=== PATIENT | female | born 1965 | race Caucasian/White ===

== ENCOUNTER 2017-07-07 16:44 | Inpatient (IN) | payer OTHER ==
[~2017-07-07] VITALS: Ht 167.6 cm; Wt 48.1 kg
[~2017-07-07 16:44] MED LIST: ACID REDUCER PO; ALEVE220 M2 PO; THERAFLU COLD1 EAC3 PO; ZOFRAN ODT8 MG PO
[2017-07-08 15:00] VITALS: BP 135/82
[2017-07-08 19:14] LABS: HEMATOCRIT 21.2 % (36.0-46.0); HEMOGLOBIN 6.6 G/DL (11.9-15.5); MCH 27.7 PG (29.0-34.0); MCHC 31.1 G/DL (30.0-36.0); MCV 89.1 FL (83-99); NRBC (%) 2.7 /100 WBC (0-0); PLATELET COUNT 410 K/uL (156-360); RBC DIS.WIDTH-CV 17.8 % (11.8-14.6); RED BLOOD COUNT 2.38 M/uL (3.80-5.20); WHITE BLOOD COUNT 30.3 K/uL (4.1-10.2)
[2017-07-08 19:22] LABS: CHLORIDE 103 MEQ/L (99-109); CREATININE 2.4 MG/DL (0.6-1.3); GFR ESTIMATE (CALCULATED) 23 mL/min/; GLUCOSE 196 mg/dL (70-99); MAGNESIUM 1.7 mg/dl (1.3-2.7); PHOSPHORUS 2.7 mg/dL (2.5-4.9); SODIUM 137 MEQ/L (136-147); UREA NITROGEN (BUN) 17 mg/dL (9-23); VANCOMYCIN, TROUGH 17.4 MCG/ML (10-20)
[2017-07-08] MEDS ORDERED: TYLENOL REGULA325 MG PO (19:47)
[2017-07-08] MEDS ORDERED: PROVENTIL,2.5 MG/0.5 IH (19:48)
[2017-07-08] MEDS ORDERED: PULMICORT0.5 MG/21 IH (19:49)
[2017-07-08] MEDS ORDERED: FAMOTIDINE IV (19:54)
[2017-07-08] MEDS ORDERED: PERFOROMIS20 MCG/2 M IH (19:55)
[2017-07-08] MEDS ORDERED: MUCINEX600 MG PO (19:57)
[2017-07-08] MEDS ORDERED: MORPHINE SUL IM (20:01)
[2017-07-08] MEDS ORDERED: NITROSTAT0.4 MG SL (20:02)
[2017-07-08] MEDS ORDERED: ULTRAM50 MG PO (20:03)
[2017-07-08] MEDS ORDERED: TRAZODONE HCL50 MG PO (20:04)
[2017-07-08] MEDS ORDERED: VANCOMYCIN750 MG/151 IV (20:07)
[2017-07-08] MEDS ORDERED: VANCOMYCIN125 MG/2.5 PO (20:09)
[2017-07-08 20:45] VITALS: BP 122/62
[2017-07-08 22:13] VITALS: BP 115/61
[2017-07-08 22:32] VITALS: BP 117/58
[2017-07-08 23:33] VITALS: BP 122/61
[2017-07-09] VITALS (7 sets, daily range): BP systolic 115–151; BP diastolic 60–82
[2017-07-09 06:22] LABS: HEMATOCRIT 26.2 % (36.0-46.0); HEMOGLOBIN 8.1 G/DL (11.9-15.5); MCH 27.4 PG (29.0-34.0); MCHC 30.9 G/DL (30.0-36.0); MCV 88.5 FL (83-99); NRBC (%) 2.1 /100 WBC (0-0); PLATELET COUNT 413 K/uL (156-360); RBC DIS.WIDTH-CV 17.7 % (11.8-14.6); RBC DIS.WIDTH-SD 55.8 % (39-53); WHITE BLOOD COUNT 27.1 K/uL (4.1-10.2)
[2017-07-09 06:31] LABS: RED BLOOD COUNT 2.96 M/uL (3.80-5.20)
[2017-07-09 06:53] LABS: ALBUMIN 1.9 G/DL (3.2-4.8); ALKALINE PHOSPHATASE 205 IU/L (3-129); ALT (GPT) 12 IU/L (3-49); AST (GOT) 21 IU/L (2-34); CHLORIDE 104 MEQ/L (99-109); CREATININE 2.6 MG/DL (0.6-1.3); GFR ESTIMATE (CALCULATED) 21 mL/min/; MAGNESIUM 1.8 mg/dl (1.3-2.7); POTASSIUM 4.2 MEQ/L (3.7-5.4); SODIUM 140 MEQ/L (136-147); TOTAL BILIRUBIN 0.3 MG/DL (0.0-1.0); TOTAL PROTEIN 5.7 G/DL (6.4-8.3); UREA NITROGEN (BUN) 18 mg/dL (9-23)
[2017-07-09 06:56] LABS: GLUCOSE 70 mg/dL (70-99)
[2017-07-10 00:28] VITALS: BP 155/74
[2017-07-10 04:36] VITALS: BP 155/82
[2017-07-10 04:36] LABS: HEMATOCRIT 26.6 % (36.0-46.0); HEMOGLOBIN 8.5 G/DL (11.9-15.5); MCH 28.2 PG (29.0-34.0); MCV 88.4 FL (83-99); NRBC (%) 1.3 /100 WBC (0-0); PLATELET COUNT 429 K/uL (156-360); RBC DIS.WIDTH-CV 17.9 % (11.8-14.6); RBC DIS.WIDTH-SD 56.6 % (39-53); RED BLOOD COUNT 3.01 M/uL (3.80-5.20); WHITE BLOOD COUNT 25.5 K/uL (4.1-10.2)
[2017-07-10 05:21] LABS: CHLORIDE 105 mEq/L (99-109); POTASSIUM 4.4 mEq/L (3.7-5.4); SODIUM 139 mEq/L (136-147)
[2017-07-10 05:22] LABS: GLUCOSE 81 mg/dL (70-99)
[2017-07-10 05:26] LABS: GFR ESTIMATE (CALCULATED) 15 mL/min/
[2017-07-10 05:27] LABS: UREA NITROGEN (BUN) 23 mg/dL (9-23)
[2017-07-10 05:34] LABS: CREATININE 3.5 mg/dL (0.6-1.3)
[2017-07-10 06:04] LABS: VANCOMYCIN, TROUGH 20.3 MCG/ML (10-20)
[2017-07-10 06:21] LABS: ABS NEUTROPHIL COUNT 20.1; ANISOCYTOSIS 2+; ATYPICAL LYMPHOCYTE 0.4 %; BAND NEUTROPHILS 1.7 % (0-8.0); EOSINOPHIL ABS CT 0.6; EOSINOPHILS 2.2 % (0-5.0); HOWELL JOLLY BODIES 2+; HYPOCHROMASIA 2+; MACROCYTES 2+; METAMYELOCYTES 1.3 %; MONOCYTES 4.3 % (0-9.0); MYELOCYTES 6.1 %; NUCLEATED RBC'S 1.7; OVALOCYTES 1+; PLAT.SUFFICIENCY ADEQUATE; POIKILOCYTOSIS 1+; TARGET CELLS 2+
[2017-07-10 07:38] VITALS: BP 134/68
[2017-07-10 13:05] VITALS: BP 139/68
[2017-07-10 14:10] LABS: HEPATITIS B SURFACE ANTIBODY Nonreactive
[2017-07-10 20:30] VITALS: BP 122/61
[2017-07-10 23:00] VITALS: BP 124/61
[2017-07-11 04:30] VITALS: BP 127/69
[2017-07-11 05:53] LABS: HEMATOCRIT 26.8 % (36.0-46.0); HEMOGLOBIN 8.3 G/DL (11.9-15.5); MCV 90.5 FL (83-99); NRBC (%) 0.8 /100 WBC (0-0); PLATELET COUNT 411 K/uL (156-360); RBC DIS.WIDTH-SD 58.4 % (39-53); RED BLOOD COUNT 2.96 M/uL (3.80-5.20); WHITE BLOOD COUNT 21.9 K/uL (4.1-10.2)
[2017-07-11 05:56] LABS: CHLORIDE 103 MEQ/L (99-109); GFR ESTIMATE (CALCULATED) 24 mL/min/; GLUCOSE 73 mg/dL (70-99); POTASSIUM 3.9 MEQ/L (3.7-5.4); SODIUM 138 MEQ/L (136-147); UREA NITROGEN (BUN) 10 mg/dL (9-23); VANCOMYCIN, TROUGH 18.9 MCG/ML (10-20)
[2017-07-11 05:57] LABS: CREATININE 2.3 MG/DL (0.6-1.3)
[2017-07-11 06:58] LABS: ABS NEUTROPHIL COUNT 18.5; BAND NEUTROPHILS 0.9 % (0-8.0); EOSINOPHIL ABS CT 1.1; EOSINOPHILS 5.2 % (0-5.0); LYMPHOCYTES 3.5 % (15.0-45.0); METAMYELOCYTES 1.7 %; MONOCYTES 4.3 % (0-9.0); MYELOCYTES 0.9 %; NUCLEATED RBC'S 1.7; SEG.NEUTROPHILS 83.5 % (46.0-76.0)
[2017-07-11 08:05] VITALS: BP 135/64
[2017-07-11 11:35] VITALS: BP 135/72
[2017-07-11 15:37] LABS: APPEARANCE TURBID ((CLEAR)); BILIRUBIN NEGATIVE; BLOOD LARGE; COLOR AMBER ((YELLOW)); GLUCOSE (STRIP) NEGATIVE; KETONES NEGATIVE; LEUKOCYTES MODERATE; NITRITE NEGATIVE; PROTEIN (STRIP) 100; UROBILINOGEN 0.2 MG/DL (0.2-1.0)
[2017-07-11 15:51] LABS: UCUL ADDED? YES; WHITE BLOOD CELLS TNTC /HPF (0-5)
[2017-07-11 15:55] VITALS: BP 159/77
[2017-07-11 17:23] LABS: PTT 23.8 SEC (25-37)
[2017-07-11 19:00] VITALS: BP 161/75
[2017-07-11 23:00] VITALS: BP 119/58
[2017-07-12 03:30] VITALS: BP 118/56
[2017-07-12 05:58] LABS: HEMATOCRIT 27.2 % (36.0-46.0); HEMOGLOBIN 8.2 G/DL (11.9-15.5); MCH 27.9 PG (29.0-34.0); MCHC 30.1 G/DL (30.0-36.0); MCV 92.5 FL (83-99); NRBC (%) 0.8 /100 WBC (0-0); PLATELET COUNT 459 K/uL (156-360); RBC DIS.WIDTH-CV 17.8 % (11.8-14.6); RBC DIS.WIDTH-SD 59.3 % (39-53); RED BLOOD COUNT 2.94 M/uL (3.80-5.20); WHITE BLOOD COUNT 19.6 K/uL (4.1-10.2)
[2017-07-12 06:24] LABS: ABS NEUTROPHIL COUNT 14.8; ANISOCYTOSIS 3+; ATYPICAL LYMPHOCYTE 3.5 %; BAND NEUTROPHILS 1.7 % (0-8.0); BURR CELLS 2+; EOSINOPHILS 5.2 % (0-5.0); HYPOCHROMASIA 1+; LYMPHOCYTES 9.6 % (15.0-45.0); MACROCYTES 2+; MONOCYTES 6.1 % (0-9.0); NUCLEATED RBC'S 0.9; PLAT.SUFFICIENCY ADEQUATE; POIKILOCYTOSIS 1+; SEG.NEUTROPHILS 73.9 % (46.0-76.0); TARGET CELLS 2+
[2017-07-12 07:06] LABS: ALKALINE PHOSPHATASE 184 IU/L (3-129); ALT (GPT) 9 IU/L (3-49); AST (GOT) 12 IU/L (2-34); CHLORIDE 106 MEQ/L (99-109); GFR ESTIMATE (CALCULATED) 17 mL/min/; GLUCOSE 74 mg/dL (70-99); MAGNESIUM 1.8 mg/dl (1.3-2.7); PHOSPHORUS 2.9 mg/dL (2.5-4.9); POTASSIUM 4.2 MEQ/L (3.7-5.4); SODIUM 138 MEQ/L (136-147); TOTAL BILIRUBIN 0.3 MG/DL (0.0-1.0); TOTAL PROTEIN 6.3 G/DL (6.4-8.3); UREA NITROGEN (BUN) 17 mg/dL (9-23)
[2017-07-12 10:30] LABS: HEMOGLOBIN A1c (GLYCOHEMOGLOB) 5.2 % (Below 5.7)
[2017-07-12 12:35] VITALS: BP 149/65
[2017-07-12 16:27] VITALS: BP 145/75
[2017-07-12 19:30] VITALS: BP 125/60
[2017-07-13 00:30] VITALS: BP 120/60
[2017-07-13 03:55] VITALS: BP 137/71
[2017-07-13 05:23] LABS: BASOPHIL (%) 0.4 % (0-1); BASOPHIL COUNT 0.1 K/uL (0-0.1); EOSINOPHIL (%) 1.7 % (0-5); EOSINOPHIL COUNT 0.4 K/uL (0-0.3); HEMATOCRIT 26.2 % (36.0-46.0); HEMOGLOBIN 7.8 G/DL (11.9-15.5); IMMATURE GRANULOCYTE (%) 3.3 % (0.0-0.7); LYMPHOCYTE (%) 7.5 % (15-42); LYMPHOCYTE COUNT 1.6 K/uL (1.0-2.8); MCH 27.7 PG (29.0-34.0); MCHC 29.8 G/DL (30.0-36.0); MCV 92.9 FL (83-99); MONOCYTE (%) 12.6 % (3-12); MONOCYTE COUNT 2.6 K/uL (0-0.8); NEUTROPHIL (%) 74.5 % (45-76); NEUTROPHIL COUNT 15.6 K/uL (1.8-6.4); NRBC (%) 0.3 /100 WBC (0-0); PLATELET COUNT 479 K/uL (156-360); RBC DIS.WIDTH-CV 18.3 % (11.8-14.6); RED BLOOD COUNT 2.82 M/uL (3.80-5.20); WHITE BLOOD COUNT 20.9 K/uL (4.1-10.2)
[2017-07-13 05:47] LABS: ALBUMIN 1.7 G/DL (3.2-4.8); ALKALINE PHOSPHATASE 176 IU/L (3-129); ALT (GPT) 8 IU/L (3-49); AST (GOT) 11 IU/L (2-34); CHLORIDE 107 MEQ/L (99-109); GLUCOSE 82 mg/dL (70-99); POTASSIUM 4.2 MEQ/L (3.7-5.4); SODIUM 139 MEQ/L (136-147); TOTAL PROTEIN 5.6 G/DL (6.4-8.3); UREA NITROGEN (BUN) 11 mg/dL (9-23)
[2017-07-13 05:49] LABS: CREATININE 2.4 MG/DL (0.6-1.3); GFR ESTIMATE (CALCULATED) 23 mL/min/; TOTAL BILIRUBIN 0.2 MG/DL (0.0-1.0)
[2017-07-13 06:38] LABS: CHLORIDE 107 MEQ/L (99-109); GFR ESTIMATE (CALCULATED) 24 mL/min/; GLUCOSE 81 mg/dL (70-99); MAGNESIUM 1.8 mg/dl (1.3-2.7); PHOSPHORUS 2.1 mg/dL (2.5-4.9); POTASSIUM 4.3 MEQ/L (3.7-5.4); SODIUM 138 MEQ/L (136-147); UREA NITROGEN (BUN) 11 mg/dL (9-23); VANCOMYCIN, TROUGH 15.4 MCG/ML (10-20)
[2017-07-13 06:39] LABS: CREATININE 2.3 MG/DL (0.6-1.3)
[2017-07-13 08:56] VITALS: BP 138/66
[2017-07-13 11:55] VITALS: BP 135/64
[2017-07-13 14:57] VITALS: BP 125/61
[2017-07-13 19:45] VITALS: BP 145/78
[2017-07-14 00:31] VITALS: BP 128/61
[2017-07-14 07:14] LABS: HEMATOCRIT 27.3 % (36.0-46.0); HEMOGLOBIN 8.2 G/DL (11.9-15.5); MCH 28.1 PG (29.0-34.0); MCV 93.5 FL (83-99); NRBC (%) 0.2 /100 WBC (0-0); PLATELET COUNT 569 K/uL (156-360); RBC DIS.WIDTH-CV 18.8 % (11.8-14.6); RBC DIS.WIDTH-SD 63.5 % (39-53); RED BLOOD COUNT 2.92 M/uL (3.80-5.20); WHITE BLOOD COUNT 21.7 K/uL (4.1-10.2)
[2017-07-14 07:45] LABS: CHLORIDE 108 MEQ/L (99-109); GFR ESTIMATE (CALCULATED) 15 mL/min/; MAGNESIUM 1.9 mg/dl (1.3-2.7); PHOSPHORUS 2.8 mg/dL (2.5-4.9); POTASSIUM 4.7 MEQ/L (3.7-5.4); SODIUM 138 MEQ/L (136-147); UREA NITROGEN (BUN) 18 mg/dL (9-23)
[2017-07-14 07:54] LABS: CREATININE 3.4 MG/DL (0.6-1.3); GLUCOSE 115 mg/dL (70-99)
[2017-07-14 08:36] LABS: BASOPHIL (%) 0.5 % (0-1); BASOPHIL COUNT 0.1 K/uL (0-0.1); EOSINOPHIL (%) 0.9 % (0-5); EOSINOPHIL COUNT 0.2 K/uL (0-0.3); HEMATOCRIT 25.8 % (36.0-46.0); HEMOGLOBIN 7.8 G/DL (11.9-15.5); IMMATURE GRANULOCYTE (%) 1.8 % (0.0-0.7); LYMPHOCYTE (%) 8.4 % (15-42); LYMPHOCYTE COUNT 1.8 K/uL (1.0-2.8); MCH 28.5 PG (29.0-34.0); MCHC 30.2 G/DL (30.0-36.0); MCV 94.2 FL (83-99); MONOCYTE (%) 11.5 % (3-12); MONOCYTE COUNT 2.4 K/uL (0-0.8); NEUTROPHIL (%) 76.9 % (45-76); NEUTROPHIL COUNT 16.2 K/uL (1.8-6.4); NRBC (%) 0.2 /100 WBC (0-0); PLATELET COUNT 582 K/uL (156-360); RBC DIS.WIDTH-CV 18.9 % (11.8-14.6); RBC DIS.WIDTH-SD 63.7 % (39-53); RED BLOOD COUNT 2.74 M/uL (3.80-5.20); WHITE BLOOD COUNT 21.1 K/uL (4.1-10.2)
[2017-07-14 08:54] LABS: CHLORIDE 108 MEQ/L (99-109); SODIUM 139 MEQ/L (136-147)
[2017-07-14 09:07] LABS: CREATININE 3.4 MG/DL (0.6-1.3); GFR ESTIMATE (CALCULATED) 15 mL/min/; GLUCOSE 106 mg/dL (70-99); PHOSPHORUS 2.6 mg/dL (2.5-4.9); UREA NITROGEN (BUN) 19 mg/dL (9-23)
[2017-07-14 11:59] LABS: BASE EXCESS 3.1 mEq/L (-3 to +3); BICARBONATE 27.9 mEq/L (22-26); CARBOXY HGB 1.5 % (0-5); PO2 62 mm Hg (80-100)
[2017-07-14 12:00] VITALS: BP 115/53
[2017-07-14 12:12] LABS: PCO2 43 mm Hg (35-45); pH 7.42 (7.35-7.45)
[2017-07-14 12:13] LABS: COMMENTS - BLOOD GASES C+A+; DEVICE TP; FI02 40 %; O2 FLOW 10 L/MIN; SITE Y
[2017-07-14 16:30] VITALS: BP 122/64
[2017-07-14 20:12] VITALS: BP 117/57
[2017-07-14 22:59] VITALS: BP 118/56
[2017-07-15 03:15] VITALS: BP 115/55
[2017-07-15 06:49] LABS: BASOPHIL (%) 0.6 % (0-1); BASOPHIL COUNT 0.2 K/uL (0-0.1); EOSINOPHIL COUNT 0.5 K/uL (0-0.3); HEMATOCRIT 25.6 % (36.0-46.0); HEMOGLOBIN 7.4 G/DL (11.9-15.5); IMMATURE GRANULOCYTE (%) 1.3 % (0.0-0.7); LYMPHOCYTE (%) 9.7 % (15-42); LYMPHOCYTE COUNT 2.3 K/uL (1.0-2.8); MCH 27.3 PG (29.0-34.0); MCHC 28.9 G/DL (30.0-36.0); MCV 94.5 FL (83-99); MONOCYTE (%) 13.5 % (3-12); MONOCYTE COUNT 3.2 K/uL (0-0.8); NEUTROPHIL (%) 72.9 % (45-76); NEUTROPHIL COUNT 17.3 K/uL (1.8-6.4); NRBC (%) 0.2 /100 WBC (0-0); PLATELET COUNT 664 K/uL (156-360); RBC DIS.WIDTH-CV 18.8 % (11.8-14.6); RBC DIS.WIDTH-SD 63.2 % (39-53); RED BLOOD COUNT 2.71 M/uL (3.80-5.20); WHITE BLOOD COUNT 23.7 K/uL (4.1-10.2)
[2017-07-15 07:26] LABS: ALBUMIN 1.8 G/DL (3.2-4.8); ALKALINE PHOSPHATASE 157 IU/L (3-129); ALT (GPT) 7 IU/L (3-49); AST (GOT) 12 IU/L (2-34); CHLORIDE 106 MEQ/L (99-109); MAGNESIUM 1.9 mg/dl (1.3-2.7); PHOSPHORUS 2.9 mg/dL (2.5-4.9); POTASSIUM 4.4 MEQ/L (3.7-5.4); SODIUM 138 MEQ/L (136-147); TOTAL PROTEIN 5.7 G/DL (6.4-8.3); UREA NITROGEN (BUN) 16 mg/dL (9-23)
[2017-07-15 07:51] LABS: CREATININE 2.4 MG/DL (0.6-1.3); GFR ESTIMATE (CALCULATED) 23 mL/min/; GLUCOSE 73 mg/dL (70-99); TOTAL BILIRUBIN 0.3 MG/DL (0.0-1.0)
[2017-07-15 11:56] VITALS: BP 132/74
[2017-07-15 22:06] VITALS: BP 129/62
[2017-07-16] VITALS (7 sets, daily range): BP systolic 119–166; BP diastolic 59–74
[2017-07-16 05:52] LABS: HEMATOCRIT 26.9 % (36.0-46.0); HEMOGLOBIN 8.2 G/DL (11.9-15.5); MCH 28.7 PG (29.0-34.0); MCHC 30.5 G/DL (30.0-36.0); MCV 94.1 FL (83-99); NRBC (%) 0.3 /100 WBC (0-0); PLATELET COUNT 754 K/uL (156-360); RBC DIS.WIDTH-CV 19.1 % (11.8-14.6); RBC DIS.WIDTH-SD 64.4 % (39-53); RED BLOOD COUNT 2.86 M/uL (3.80-5.20); WHITE BLOOD COUNT 17.5 K/uL (4.1-10.2)
[2017-07-16 06:36] LABS: CHLORIDE 104 MEQ/L (99-109); GLUCOSE 61 mg/dL (70-99); POTASSIUM 4.5 MEQ/L (3.7-5.4); SODIUM 137 MEQ/L (136-147); UREA NITROGEN (BUN) 21 mg/dL (9-23)
[2017-07-16 06:41] LABS: CREATININE 3.4 MG/DL (0.6-1.3); GFR ESTIMATE (CALCULATED) 15 mL/min/; PHOSPHORUS 4.6 mg/dL (2.5-4.9)
[2017-07-17 05:42] LABS: BASOPHIL (%) 0.7 % (0-1); BASOPHIL COUNT 0.2 K/uL (0-0.1); EOSINOPHIL (%) 4.4 % (0-5); EOSINOPHIL COUNT 0.9 K/uL (0-0.3); HEMATOCRIT 25.9 % (36.0-46.0); HEMOGLOBIN 7.6 G/DL (11.9-15.5); IMMATURE GRANULOCYTE (%) 0.7 % (0.0-0.7); LYMPHOCYTE (%) 9.7 % (15-42); MCH 27.8 PG (29.0-34.0); MCHC 29.3 G/DL (30.0-36.0); MCV 94.9 FL (83-99); MONOCYTE (%) 12.2 % (3-12); MONOCYTE COUNT 2.4 K/uL (0-0.8); NEUTROPHIL (%) 72.3 % (45-76); NEUTROPHIL COUNT 14.4 K/uL (1.8-6.4); NRBC (%) 0.4 /100 WBC (0-0); PLATELET COUNT 852 K/uL (156-360); RBC DIS.WIDTH-CV 18.8 % (11.8-14.6); RBC DIS.WIDTH-SD 64.1 % (39-53); RED BLOOD COUNT 2.73 M/uL (3.80-5.20)
[2017-07-17 05:55] VITALS: BP 126/59
[2017-07-17 06:25] LABS: ALKALINE PHOSPHATASE 154 IU/L (3-129); ALT (GPT) 6 IU/L (3-49); AST (GOT) 9 IU/L (2-34); CHLORIDE 106 MEQ/L (99-109); GLUCOSE 65 mg/dL (70-99); SODIUM 139 MEQ/L (136-147); TOTAL PROTEIN 5.9 G/DL (6.4-8.3)
[2017-07-17 06:29] LABS: CREATININE 4.3 MG/DL (0.6-1.3); GFR ESTIMATE (CALCULATED) 11 mL/min/; POTASSIUM 5.5 MEQ/L (3.7-5.4); TOTAL BILIRUBIN 0.2 MG/DL (0.0-1.0); UREA NITROGEN (BUN) 32 mg/dL (9-23)
[2017-07-17 06:35] LABS: MAGNESIUM 2.2 mg/dl (1.3-2.7); PHOSPHORUS 5.8 mg/dL (2.5-4.9)
[2017-07-17 08:00] VITALS: BP 123/59
[2017-07-17 09:44] LABS: PHOSPHORUS 5.8 mg/dL (2.5-4.9)
[2017-07-17 12:00] VITALS: BP 116/56
[2017-07-17 16:17] VITALS: BP 124/52
[2017-07-17 19:30] VITALS: BP 134/67
[2017-07-17 23:29] VITALS: BP 137/70
[2017-07-18 03:54] VITALS: BP 100/59
[2017-07-18 06:13] LABS: BASOPHIL COUNT 0.2 K/uL (0-0.1); EOSINOPHIL (%) 3.5 % (0-5); EOSINOPHIL COUNT 0.6 K/uL (0-0.3); HEMATOCRIT 24.8 % (36.0-46.0); HEMOGLOBIN 7.2 G/DL (11.9-15.5); IMMATURE GRANULOCYTE (%) 0.5 % (0.0-0.7); LYMPHOCYTE (%) 10.9 % (15-42); LYMPHOCYTE COUNT 1.8 K/uL (1.0-2.8); MCH 27.7 PG (29.0-34.0); MCV 95.4 FL (83-99); MONOCYTE (%) 12.3 % (3-12); MONOCYTE COUNT 2.1 K/uL (0-0.8); NEUTROPHIL (%) 71.8 % (45-76); NEUTROPHIL COUNT 11.9 K/uL (1.8-6.4); NRBC (%) 0.3 /100 WBC (0-0); PLATELET COUNT 775 K/uL (156-360); RBC DIS.WIDTH-CV 19.6 % (11.8-14.6); RBC DIS.WIDTH-SD 67.1 % (39-53); WHITE BLOOD COUNT 16.6 K/uL (4.1-10.2)
[2017-07-18 06:32] LABS: ALBUMIN 1.9 G/DL (3.2-4.8); ALKALINE PHOSPHATASE 142 IU/L (3-129); ALT (GPT) 5 IU/L (3-49); AST (GOT) 10 IU/L (2-34); CHLORIDE 107 MEQ/L (99-109); CHLORIDE 108 MEQ/L (99-109); GFR ESTIMATE (CALCULATED) 20 mL/min/; GLUCOSE 69 mg/dL (70-99); PHOSPHORUS 4.5 mg/dL (2.5-4.9); POTASSIUM 4.5 MEQ/L (3.7-5.4); POTASSIUM 4.6 MEQ/L (3.7-5.4); SODIUM 138 MEQ/L (136-147); SODIUM 139 MEQ/L (136-147); TOTAL PROTEIN 5.9 G/DL (6.4-8.3)
[2017-07-18 06:37] LABS: CREATININE 2.7 MG/DL (0.6-1.3); GFR ESTIMATE (CALCULATED) 20 mL/min/; TOTAL BILIRUBIN 0.3 MG/DL (0.0-1.0); UREA NITROGEN (BUN) 12 mg/dL (9-23)
[2017-07-18 09:30] VITALS: BP 107/52
[2017-07-18 12:21] VITALS: BP 113/55
[2017-07-18 14:44] LABS: FERRITIN 178 NG/ML (10-291); IRON 38 MCG/DL (35-150); TRANSFERRIN SATUR. 34 % (20-55)
[2017-07-18 20:13] VITALS: BP 127/61
[2017-07-18 23:47] VITALS: BP 132/68
[2017-07-19 05:11] VITALS: BP 133/64
[2017-07-19 05:48] LABS: BASOPHIL (%) 0.9 % (0-1); BASOPHIL COUNT 0.2 K/uL (0-0.1); EOSINOPHIL (%) 3.6 % (0-5); EOSINOPHIL COUNT 0.7 K/uL (0-0.3); HEMATOCRIT 27.4 % (36.0-46.0); IMMATURE GRANULOCYTE (%) 0.6 % (0.0-0.7); LYMPHOCYTE (%) 11.6 % (15-42); LYMPHOCYTE COUNT 2.3 K/uL (1.0-2.8); MCH 28.2 PG (29.0-34.0); MCHC 29.2 G/DL (30.0-36.0); MCV 96.5 FL (83-99); MONOCYTE (%) 12.3 % (3-12); MONOCYTE COUNT 2.4 K/uL (0-0.8); NRBC (%) 0.1 /100 WBC (0-0); PLATELET COUNT 800 K/uL (156-360); RBC DIS.WIDTH-CV 19.8 % (11.8-14.6); RBC DIS.WIDTH-SD 68.8 % (39-53); RED BLOOD COUNT 2.84 M/uL (3.80-5.20); WHITE BLOOD COUNT 19.7 K/uL (4.1-10.2)
[2017-07-19 06:05] LABS: CHLORIDE 112 mEq/L (99-109); POTASSIUM 5.1 mEq/L (3.7-5.4); SODIUM 141 mEq/L (136-147)
[2017-07-19 06:06] LABS: MAGNESIUM 2.1 mg/dL (1.3-2.7)
[2017-07-19 06:07] LABS: GLUCOSE 83 mg/dL (70-99)
[2017-07-19 06:11] LABS: GFR ESTIMATE (CALCULATED) 14 mL/min/
[2017-07-19 06:12] LABS: UREA NITROGEN (BUN) 20 mg/dL (9-23)
[2017-07-19 06:14] LABS: CREATININE 3.7 mg/dL (0.6-1.3)
[2017-07-19 06:42] LABS: VANCOMYCIN, TROUGH 19.1 MCG/ML (10-20)
[2017-07-19 07:07] VITALS: BP 133/63
[2017-07-19 12:26] VITALS: BP 124/59
[2017-07-19 16:30] VITALS: BP 119/59
[2017-07-19 20:47] VITALS: BP 122/86
[2017-07-19 22:42] VITALS: BP 125/58
[2017-07-20 02:59] VITALS: BP 132/64
[2017-07-20 05:25] LABS: HEMATOCRIT 27.1 % (36.0-46.0); MCH 28.7 PG (29.0-34.0); MCHC 29.5 G/DL (30.0-36.0); MCV 97.1 FL (83-99); NRBC (%) 0.1 /100 WBC (0-0); PLATELET COUNT 750 K/uL (156-360); RBC DIS.WIDTH-CV 20.1 % (11.8-14.6); RBC DIS.WIDTH-SD 71.1 % (39-53); RED BLOOD COUNT 2.79 M/uL (3.80-5.20); WHITE BLOOD COUNT 14.9 K/uL (4.1-10.2)
[2017-07-20 06:01] LABS: CHLORIDE 106 MEQ/L (99-109); GLUCOSE 76 mg/dL (70-99); MAGNESIUM 2.1 mg/dl (1.3-2.7); PHOSPHORUS 4.5 mg/dL (2.5-4.9); SODIUM 139 MEQ/L (136-147); UREA NITROGEN (BUN) 11 mg/dL (9-23)
[2017-07-20 06:14] LABS: CREATININE 2.4 MG/DL (0.6-1.3); GFR ESTIMATE (CALCULATED) 23 mL/min/; POTASSIUM 3.6 MEQ/L (3.7-5.4)
[2017-07-20 07:49] VITALS: BP 130/68
[2017-07-20 11:32] VITALS: BP 155/74
[2017-07-20 15:20] VITALS: BP 140/68
[2017-07-20 20:45] VITALS: BP 143/99
[2017-07-20 22:03] VITALS: BP 129/69
[2017-07-21 04:33] VITALS: BP 133/67
[2017-07-21 05:59] LABS: HEMATOCRIT 25.3 % (36.0-46.0); HEMOGLOBIN 7.6 G/DL (11.9-15.5); MCH 28.7 PG (29.0-34.0); MCV 95.5 FL (83-99); PLATELET COUNT 740 K/uL (156-360); RBC DIS.WIDTH-CV 19.9 % (11.8-14.6); RED BLOOD COUNT 2.65 M/uL (3.80-5.20); WHITE BLOOD COUNT 11.8 K/uL (4.1-10.2)
[2017-07-21 06:33] LABS: CHLORIDE 111 MEQ/L (99-109); GLUCOSE 74 mg/dL (70-99); MAGNESIUM 2.1 mg/dl (1.3-2.7); POTASSIUM 4.2 MEQ/L (3.7-5.4); SODIUM 141 MEQ/L (136-147); UREA NITROGEN (BUN) 18 mg/dL (9-23)
[2017-07-21 06:34] LABS: CREATININE 3.5 MG/DL (0.6-1.3); GFR ESTIMATE (CALCULATED) 15 mL/min/; PHOSPHORUS 6.1 mg/dL (2.5-4.9)
[2017-07-21 07:12] VITALS: BP 158/78
[2017-07-21 11:30] VITALS: BP 149/82
[2017-07-21 16:49] LABS: HEMATOCRIT 34.3 % (36.0-46.0); MCH 29.6 PG (29.0-34.0); MCHC 32.1 G/DL (30.0-36.0); MCV 92.2 FL (83-99); RBC DIS.WIDTH-CV 16.5 % (11.8-14.6); RBC DIS.WIDTH-SD 54.1 % (39-53); WHITE BLOOD COUNT 14.6 K/uL (4.1-10.2)
[2017-07-21 17:12] LABS: CHLORIDE 114 MEQ/L (99-109); CREATININE 3.3 MG/DL (0.6-1.3); GFR ESTIMATE (CALCULATED) 16 mL/min/; POTASSIUM 4.6 MEQ/L (3.7-5.4); SODIUM 140 MEQ/L (136-147); UREA NITROGEN (BUN) 17 mg/dL (9-23)
[2017-07-21 17:13] LABS: GLUCOSE 96 mg/dL (70-99); RED BLOOD COUNT 3.72 M/uL (3.80-5.20)
[2017-07-21 17:47] LABS: PLATELET COUNT 390 K/uL (156-360)
[2017-07-21 23:27] VITALS: BP 106/56
[2017-07-22] VITALS (7 sets, daily range): BP systolic 102–121; BP diastolic 55–67
[2017-07-22 06:09] LABS: HEMATOCRIT 30.8 % (36.0-46.0); HEMOGLOBIN 9.9 G/DL (11.9-15.5); MCH 29.6 PG (29.0-34.0); MCHC 32.1 G/DL (30.0-36.0); MCV 91.9 FL (83-99); PLATELET COUNT 421 K/uL (156-360); RBC DIS.WIDTH-CV 17.8 % (11.8-14.6); RBC DIS.WIDTH-SD 58.2 % (39-53); RED BLOOD COUNT 3.35 M/uL (3.80-5.20); WHITE BLOOD COUNT 17.4 K/uL (4.1-10.2)
[2017-07-22 06:59] LABS: ALBUMIN 2.2 G/DL (3.2-4.8); CHLORIDE 112 MEQ/L (99-109); CREATININE 3.7 MG/DL (0.6-1.3); DIRECT BILIRUBIN 0.1 mg/dL (0.0-0.3); GFR ESTIMATE (CALCULATED) 14 mL/min/; GLUCOSE 85 mg/dL (70-99); MAGNESIUM 2.1 mg/dl (1.3-2.7); PHOSPHORUS 7.5 mg/dL (2.5-4.9); POTASSIUM 5.3 MEQ/L (3.7-5.4); SODIUM 144 MEQ/L (136-147); TOTAL PROTEIN 5.4 G/DL (6.4-8.3); UREA NITROGEN (BUN) 20 mg/dL (9-23); VANCOMYCIN, TROUGH 16.9 MCG/ML (10-20)
[2017-07-22 07:05] LABS: ALKALINE PHOSPHATASE 104 IU/L (3-129); ALT (GPT) 15 IU/L (3-49); AST (GOT) 57 IU/L (2-34); TOTAL BILIRUBIN 0.5 MG/DL (0.0-1.0)
[2017-07-23 05:05] VITALS: BP 116/64
[2017-07-23 05:28] LABS: HEMATOCRIT 29.1 % (36.0-46.0); HEMOGLOBIN 9.1 G/DL (11.9-15.5); MCHC 31.3 G/DL (30.0-36.0); MCV 92.7 FL (83-99); PLATELET COUNT 371 K/uL (156-360); RBC DIS.WIDTH-CV 17.8 % (11.8-14.6); RBC DIS.WIDTH-SD 59.8 % (39-53); RED BLOOD COUNT 3.14 M/uL (3.80-5.20); WHITE BLOOD COUNT 17.4 K/uL (4.1-10.2)
[2017-07-23 06:13] LABS: ALBUMIN 2.2 G/DL (3.2-4.8); ALKALINE PHOSPHATASE 120 IU/L (3-129); ALT (GPT) 12 IU/L (3-49); CHLORIDE 102 MEQ/L (99-109); GLUCOSE 98 mg/dL (70-99); MAGNESIUM 1.8 mg/dl (1.3-2.7); TOTAL BILIRUBIN 0.4 MG/DL (0.0-1.0); TOTAL PROTEIN 5.3 G/DL (6.4-8.3); UREA NITROGEN (BUN) 14 mg/dL (9-23)
[2017-07-23 06:17] LABS: CREATININE 2.6 MG/DL (0.6-1.3); GFR ESTIMATE (CALCULATED) 21 mL/min/
[2017-07-23 06:18] LABS: AST (GOT) 29 IU/L (2-34); PHOSPHORUS 3.9 mg/dL (2.5-4.9); POTASSIUM 3.9 MEQ/L (3.7-5.4); SODIUM 136 MEQ/L (136-147)
[2017-07-23 09:55] VITALS: BP 101/54
[2017-07-23 11:20] VITALS: BP 107/53
[2017-07-23 16:14] VITALS: BP 125/65
[2017-07-23 19:27] VITALS: BP 119/67
[2017-07-24 05:00] LABS: HEMATOCRIT 29.5 % (36.0-46.0); HEMOGLOBIN 9.3 G/DL (11.9-15.5); MCH 29.9 PG (29.0-34.0); MCHC 31.5 G/DL (30.0-36.0); MCV 94.9 FL (83-99); RBC DIS.WIDTH-CV 17.6 % (11.8-14.6); RBC DIS.WIDTH-SD 61.1 % (39-53); RED BLOOD COUNT 3.11 M/uL (3.80-5.20); WHITE BLOOD COUNT 19.5 K/uL (4.1-10.2)
[2017-07-24 05:19] LABS: ALBUMIN 2.3 g/dL (3.2-4.8); CHLORIDE 103 mEq/L (99-109); POTASSIUM 4.4 mEq/L (3.7-5.4); SODIUM 135 mEq/L (136-147)
[2017-07-24 05:20] LABS: MAGNESIUM 1.8 mg/dL (1.3-2.7)
[2017-07-24 05:22] LABS: GLUCOSE 82 mg/dL (70-99); TOTAL PROTEIN 5.9 g/dL (6.4-8.3)
[2017-07-24 05:24] VITALS: BP 132/74
[2017-07-24 05:24] LABS: TOTAL BILIRUBIN 0.3 mg/dL (0.0-1.0)
[2017-07-24 05:25] LABS: ALKALINE PHOSPHATASE 186 IU/L (3-129)
[2017-07-24 05:26] LABS: GFR ESTIMATE (CALCULATED) 14 mL/min/
[2017-07-24 05:27] LABS: AST (GOT) 26 IU/L (2-34); UREA NITROGEN (BUN) 19 mg/dL (9-23)
[2017-07-24 05:29] LABS: ALT (GPT) 14 IU/L (3-49)
[2017-07-24 05:32] LABS: CREATININE 3.6 mg/dL (0.6-1.3)
[2017-07-24 05:53] LABS: PLAT.SUFFICIENCY INCREASED; PLATELET COUNT 378 K/uL (156-360)
[2017-07-24 06:55] VITALS: BP 125/62
[2017-07-24 11:37] VITALS: BP 157/69
[2017-07-24 15:00] VITALS: BP 111/67
[2017-07-24 20:28] VITALS: BP 128/63
[2017-07-24 22:35] VITALS: BP 127/69
[2017-07-25] VITALS (7 sets, daily range): BP systolic 94–147; BP diastolic 47–78
[2017-07-25 05:12] LABS: BASOPHIL (%) 0.7 % (0-1); BASOPHIL COUNT 0.1 K/uL (0-0.1); EOSINOPHIL (%) 4.5 % (0-5); EOSINOPHIL COUNT 0.9 K/uL (0-0.3); HEMATOCRIT 29.2 % (36.0-46.0); HEMOGLOBIN 8.8 G/DL (11.9-15.5); IMMATURE GRANULOCYTE (%) 0.5 % (0.0-0.7); LYMPHOCYTE (%) 10.9 % (15-42); LYMPHOCYTE COUNT 2.1 K/uL (1.0-2.8); MCH 29.2 PG (29.0-34.0); MCHC 30.1 G/DL (30.0-36.0); MONOCYTE (%) 15.5 % (3-12); NEUTROPHIL (%) 67.9 % (45-76); PLATELET COUNT 397 K/uL (156-360); RBC DIS.WIDTH-CV 17.7 % (11.8-14.6); RBC DIS.WIDTH-SD 62.1 % (39-53); RED BLOOD COUNT 3.01 M/uL (3.80-5.20); WHITE BLOOD COUNT 19.1 K/uL (4.1-10.2)
[2017-07-25 05:38] LABS: CHLORIDE 104 MEQ/L (99-109); GFR ESTIMATE (CALCULATED) 21 mL/min/; GLUCOSE 85 mg/dL (70-99); POTASSIUM 3.8 MEQ/L (3.7-5.4); SODIUM 139 MEQ/L (136-147); UREA NITROGEN (BUN) 10 mg/dL (9-23)
[2017-07-25 05:43] LABS: CREATININE 2.5 MG/DL (0.6-1.3)
[2017-07-25 21:54] LABS: BASE EXCESS -0.2 mEq/L (-3 to +3); BICARBONATE 25.4 mEq/L (22-26); METHEMOGLOBIN 1.8 % (0-1.5); PCO2 45 mm Hg (35-45); PO2 72 mm Hg (80-100); pH 7.36 (7.35-7.45)
[2017-07-25 21:55] LABS: COMMENTS - BLOOD GASES C+; DEVICE VENT; FI02 70 %; MECHANICAL RATE 22 resp/min; MODE ACVC; PEEP 5 CM/H20; SITE RR; TIDAL VOLUME 380 ML; TOTAL RESP RATE 22 resp/min
[2017-07-26] VITALS (18 sets, daily range): BP systolic 88–133; BP diastolic 43–82
[2017-07-26 05:33] LABS: BASOPHIL (%) 0.2 % (0-1); EOSINOPHIL (%) 0 % (0-5); HEMATOCRIT 27.1 % (36.0-46.0); HEMOGLOBIN 8.4 G/DL (11.9-15.5); IMMATURE GRANULOCYTE (%) 0.5 % (0.0-0.7); LYMPHOCYTE (%) 1.9 % (15-42); LYMPHOCYTE COUNT 0.4 K/uL (1.0-2.8); MCH 29.7 PG (29.0-34.0); MCV 95.8 FL (83-99); MONOCYTE (%) 4.7 % (3-12); MONOCYTE COUNT 0.9 K/uL (0-0.8); NEUTROPHIL (%) 92.7 % (45-76); NEUTROPHIL COUNT 17.3 K/uL (1.8-6.4); PLATELET COUNT 472 K/uL (156-360); RBC DIS.WIDTH-CV 17.3 % (11.8-14.6); RED BLOOD COUNT 2.83 M/uL (3.80-5.20); WHITE BLOOD COUNT 18.6 K/uL (4.1-10.2)
[2017-07-26 06:00] LABS: CHLORIDE 105 MEQ/L (99-109); SODIUM 140 MEQ/L (136-147); UREA NITROGEN (BUN) 16 mg/dL (9-23)
[2017-07-26 06:07] LABS: CREATININE 3.4 MG/DL (0.6-1.3); GFR ESTIMATE (CALCULATED) 15 mL/min/; GLUCOSE 157 mg/dL (70-99); POTASSIUM 4.7 MEQ/L (3.7-5.4)
[2017-07-27] VITALS (13 sets, daily range): BP systolic 106–167; BP diastolic 60–82
[2017-07-27 05:27] LABS: BASOPHIL (%) 0.1 % (0-1); EOSINOPHIL (%) 0 % (0-5); HEMATOCRIT 26.7 % (36.0-46.0); HEMOGLOBIN 8.2 G/DL (11.9-15.5); IMMATURE GRANULOCYTE (%) 0.7 % (0.0-0.7); LYMPHOCYTE COUNT 0.7 K/uL (1.0-2.8); MCH 29.4 PG (29.0-34.0); MCHC 30.7 G/DL (30.0-36.0); MCV 95.7 FL (83-99); MONOCYTE COUNT 1.8 K/uL (0-0.8); NEUTROPHIL (%) 88.2 % (45-76); NRBC (%) 0.3 /100 WBC (0-0); PLATELET COUNT 517 K/uL (156-360); RBC DIS.WIDTH-CV 18.2 % (11.8-14.6); RBC DIS.WIDTH-SD 61.6 % (39-53); RED BLOOD COUNT 2.79 M/uL (3.80-5.20); WHITE BLOOD COUNT 22.7 K/uL (4.1-10.2)
[2017-07-27 05:59] LABS: CHLORIDE 106 MEQ/L (99-109); GFR ESTIMATE (CALCULATED) 12 mL/min/; GLUCOSE 120 mg/dL (70-99); POTASSIUM 5.2 MEQ/L (3.7-5.4); SODIUM 140 MEQ/L (136-147); UREA NITROGEN (BUN) 24 mg/dL (9-23)
[2017-07-27 06:00] LABS: CREATININE 4.1 MG/DL (0.6-1.3)
[2017-07-28] VITALS (7 sets, daily range): BP systolic 125–148; BP diastolic 67–78
[2017-07-28 05:30] LABS: BASOPHIL (%) 0.1 % (0-1); EOSINOPHIL (%) 0 % (0-5); HEMATOCRIT 29.1 % (36.0-46.0); HEMOGLOBIN 8.8 G/DL (11.9-15.5); LYMPHOCYTE (%) 2.5 % (15-42); LYMPHOCYTE COUNT 0.6 K/uL (1.0-2.8); MCH 29.4 PG (29.0-34.0); MCHC 30.2 G/DL (30.0-36.0); MCV 97.3 FL (83-99); MONOCYTE COUNT 1.7 K/uL (0-0.8); NEUTROPHIL (%) 89.4 % (45-76); NEUTROPHIL COUNT 21.6 K/uL (1.8-6.4); NRBC (%) 0.2 /100 WBC (0-0); PLATELET COUNT 545 K/uL (156-360); RBC DIS.WIDTH-CV 18.3 % (11.8-14.6); RED BLOOD COUNT 2.99 M/uL (3.80-5.20); WHITE BLOOD COUNT 24.2 K/uL (4.1-10.2)
[2017-07-28 12:18] LABS: C DIFF TOXIN NEGATIVE (NEGATIVE)
[2017-07-29 05:22] VITALS: BP 134/80
[2017-07-29 07:55] VITALS: BP 153/72
[2017-07-29 08:36] LABS: BASOPHIL (%) 0.1 % (0-1); EOSINOPHIL (%) 0 % (0-5); HEMATOCRIT 30.5 % (36.0-46.0); HEMOGLOBIN 8.9 G/DL (11.9-15.5); LYMPHOCYTE (%) 3.4 % (15-42); LYMPHOCYTE COUNT 0.8 K/uL (1.0-2.8); MCH 29.3 PG (29.0-34.0); MCHC 29.2 G/DL (30.0-36.0); MCV 100.3 FL (83-99); MONOCYTE (%) 8.9 % (3-12); MONOCYTE COUNT 2.1 K/uL (0-0.8); NEUTROPHIL (%) 86.6 % (45-76); NEUTROPHIL COUNT 20.8 K/uL (1.8-6.4); NRBC (%) 0.2 /100 WBC (0-0); PLATELET COUNT 610 K/uL (156-360); RBC DIS.WIDTH-CV 18.3 % (11.8-14.6); RBC DIS.WIDTH-SD 67.4 % (39-53); RED BLOOD COUNT 3.04 M/uL (3.80-5.20)
[2017-07-29 09:31] LABS: ALBUMIN 2.4 G/DL (3.2-4.8); ALT (GPT) 4 IU/L (3-49); CHLORIDE 104 MEQ/L (99-109); CREATININE 3.5 MG/DL (0.6-1.3); GFR ESTIMATE (CALCULATED) 15 mL/min/; GLUCOSE 177 mg/dL (70-99); POTASSIUM 4.4 MEQ/L (3.7-5.4); SODIUM 135 MEQ/L (136-147); UREA NITROGEN (BUN) 29 mg/dL (9-23)
[2017-07-29 09:46] LABS: ALKALINE PHOSPHATASE 199 IU/L (3-129); AST (GOT) 15 IU/L (2-34); TOTAL BILIRUBIN 0.3 MG/DL (0.0-1.0); TOTAL PROTEIN 6.3 G/DL (6.4-8.3)
[2017-07-29 11:30] VITALS: BP 153/85
[2017-07-29 15:00] VITALS: BP 152/75
[2017-07-29 18:56] VITALS: BP 149/78
[2017-07-29 22:05] VITALS: BP 139/72
[2017-07-30 03:07] VITALS: BP 135/70
[2017-07-30 05:33] LABS: BASOPHIL (%) 0.5 % (0-1); BASOPHIL COUNT 0.1 K/uL (0-0.1); EOSINOPHIL (%) 0.1 % (0-5); HEMATOCRIT 31.3 % (36.0-46.0); HEMOGLOBIN 9.4 G/DL (11.9-15.5); IMMATURE GRANULOCYTE (%) 3.2 % (0.0-0.7); LYMPHOCYTE (%) 11.2 % (15-42); LYMPHOCYTE COUNT 2.3 K/uL (1.0-2.8); MCH 29.9 PG (29.0-34.0); MCV 99.7 FL (83-99); MONOCYTE (%) 13.5 % (3-12); MONOCYTE COUNT 2.8 K/uL (0-0.8); NEUTROPHIL (%) 71.5 % (45-76); NRBC (%) 0.2 /100 WBC (0-0); PLATELET COUNT 648 K/uL (156-360); RBC DIS.WIDTH-CV 18.6 % (11.8-14.6); RBC DIS.WIDTH-SD 67.8 % (39-53); RED BLOOD COUNT 3.14 M/uL (3.80-5.20)
[2017-07-30 06:10] LABS: CHLORIDE 105 MEQ/L (99-109); GFR ESTIMATE (CALCULATED) 25 mL/min/; POTASSIUM 4.2 MEQ/L (3.7-5.4); SODIUM 139 MEQ/L (136-147); UREA NITROGEN (BUN) 16 mg/dL (9-23)
[2017-07-30 06:18] LABS: CREATININE 2.2 MG/DL (0.6-1.3); GLUCOSE 78 mg/dL (70-99)
[2017-07-30 08:42] VITALS: BP 162/78
[2017-07-30 12:56] VITALS: BP 168/80
[2017-07-30 19:52] VITALS: BP 127/68
[2017-07-30 23:51] VITALS: BP 125/69
[2017-07-31 03:34] VITALS: BP 119/69
[2017-07-31 07:00] VITALS: BP 137/72
[2017-07-31 07:59] LABS: HEMATOCRIT 31.7 % (36.0-46.0); HEMOGLOBIN 9.3 G/DL (11.9-15.5); MCH 29.6 PG (29.0-34.0); MCHC 29.3 G/DL (30.0-36.0); NRBC (%) 0.4 /100 WBC (0-0); PLATELET COUNT 699 K/uL (156-360); RBC DIS.WIDTH-CV 18.6 % (11.8-14.6); RBC DIS.WIDTH-SD 69.2 % (39-53); RED BLOOD COUNT 3.14 M/uL (3.80-5.20); WHITE BLOOD COUNT 19.3 K/uL (4.1-10.2)
[2017-07-31 08:16] LABS: ALBUMIN 2.3 G/DL (3.2-4.8); CHLORIDE 105 MEQ/L (99-109); GLUCOSE 77 mg/dL (70-99); POTASSIUM 3.6 MEQ/L (3.7-5.4); SODIUM 137 MEQ/L (136-147); UREA NITROGEN (BUN) 23 mg/dL (9-23)
[2017-07-31 08:18] LABS: CREATININE 3.1 MG/DL (0.6-1.3); GFR ESTIMATE (CALCULATED) 17 mL/min/; PHOSPHORUS 2.2 mg/dL (2.5-4.9)
[2017-07-31 08:24] LABS: ABS NEUTROPHIL COUNT 15.3; ANISOCYTOSIS 2+; BAND NEUTROPHILS 0.8 % (0-8.0); EOSINOPHIL ABS CT 0; HYPOCHROMASIA 2+; LYMPHOCYTES 7.7 % (15.0-45.0); MACROCYTES 2+; METAMYELOCYTES 0.9 %; MONOCYTES 9.4 % (0-9.0); MYELOCYTES 2.6 %; PLAT.SUFFICIENCY ADEQUATE; SEG.NEUTROPHILS 78.6 % (46.0-76.0)
[2017-07-31 11:37] VITALS: BP 133/72
[2017-07-31 17:04] VITALS: BP 133/74
[2017-07-31 19:14] VITALS: BP 149/78
[2017-08-01 00:05] VITALS: BP 130/68
[2017-08-01 03:28] VITALS: BP 140/60
[2017-08-01 07:26] VITALS: BP 140/67
[2017-08-01 09:25] LABS: HEMATOCRIT 33.1 % (36.0-46.0); HEMOGLOBIN 9.6 G/DL (11.9-15.5); MCH 29.8 PG (29.0-34.0); MCV 102.8 FL (83-99); NRBC (%) 0.6 /100 WBC (0-0); PLATELET COUNT 665 K/uL (156-360); RBC DIS.WIDTH-CV 19.1 % (11.8-14.6); RBC DIS.WIDTH-SD 71.7 % (39-53); RED BLOOD COUNT 3.22 M/uL (3.80-5.20); WHITE BLOOD COUNT 21.6 K/uL (4.1-10.2)
[2017-08-01 10:19] LABS: ALBUMIN 2.7 G/DL (3.2-4.8); CHLORIDE 107 MEQ/L (99-109); SODIUM 139 MEQ/L (136-147); UREA NITROGEN (BUN) 14 mg/dL (9-23)
[2017-08-01 10:26] LABS: CREATININE 2.1 MG/DL (0.6-1.3); GFR ESTIMATE (CALCULATED) 26 mL/min/; GLUCOSE 124 mg/dL (70-99); POTASSIUM 4.4 MEQ/L (3.7-5.4)
[2017-08-01 11:32] VITALS: BP 133/72
[2017-08-01 16:14] VITALS: BP 152/72
[2017-08-01 19:58] VITALS: BP 135/78
[2017-08-02 01:20] VITALS: BP 118/69
[2017-08-02 04:18] VITALS: BP 149/79
[2017-08-02 05:16] LABS: HEMATOCRIT 32.9 % (36.0-46.0); HEMOGLOBIN 9.3 G/DL (11.9-15.5); MCH 29.2 PG (29.0-34.0); MCHC 28.3 G/DL (30.0-36.0); MCV 103.5 FL (83-99); NRBC (%) 0.5 /100 WBC (0-0); PLATELET COUNT 650 K/uL (156-360); RBC DIS.WIDTH-CV 19.4 % (11.8-14.6); RBC DIS.WIDTH-SD 71.7 % (39-53); RED BLOOD COUNT 3.18 M/uL (3.80-5.20); WHITE BLOOD COUNT 23.2 K/uL (4.1-10.2)
[2017-08-02 06:02] LABS: ALBUMIN 2.4 G/DL (3.2-4.8); CHLORIDE 109 MEQ/L (99-109); POTASSIUM 4.7 MEQ/L (3.7-5.4); SODIUM 140 MEQ/L (136-147)
[2017-08-02 06:03] LABS: CREATININE 3.1 MG/DL (0.6-1.3); GFR ESTIMATE (CALCULATED) 17 mL/min/; GLUCOSE 78 mg/dL (70-99); PHOSPHORUS 2.8 mg/dL (2.5-4.9); UREA NITROGEN (BUN) 22 mg/dL (9-23)
[2017-08-02 11:32] LABS: HEPATITIS B SURFACE ANTIGEN Nonreactive
[2017-08-02 12:31] VITALS: BP 127/63
[2017-08-02 15:43] VITALS: BP 139/69
[2017-08-02 19:45] VITALS: BP 125/58
[2017-08-03 00:13] VITALS: BP 135/58
[2017-08-03 03:47] VITALS: BP 141/62
[2017-08-03 05:11] LABS: HEMATOCRIT 31.5 % (36.0-46.0); HEMOGLOBIN 9.2 G/DL (11.9-15.5); MCHC 29.2 G/DL (30.0-36.0); MCV 102.6 FL (83-99); NRBC (%) 0.7 /100 WBC (0-0); PLATELET COUNT 570 K/uL (156-360); RBC DIS.WIDTH-CV 19.6 % (11.8-14.6); RBC DIS.WIDTH-SD 72.6 % (39-53); RED BLOOD COUNT 3.07 M/uL (3.80-5.20); WHITE BLOOD COUNT 21.2 K/uL (4.1-10.2)
[2017-08-03 05:38] LABS: ALBUMIN 2.6 G/DL (3.2-4.8); CHLORIDE 108 MEQ/L (99-109); GFR ESTIMATE (CALCULATED) 24 mL/min/; GLUCOSE 88 mg/dL (70-99); PHOSPHORUS 2.4 mg/dL (2.5-4.9); POTASSIUM 4.1 MEQ/L (3.7-5.4); SODIUM 138 MEQ/L (136-147); UREA NITROGEN (BUN) 15 mg/dL (9-23)
[2017-08-03 05:39] LABS: CREATININE 2.3 MG/DL (0.6-1.3)
[2017-08-03 08:40] VITALS: BP 161/84
[2017-08-03 12:42] VITALS: BP 135/79
[2017-08-03 15:54] VITALS: BP 141/75
[2017-08-03 20:49] VITALS: BP 146/85
[2017-08-04] VITALS (7 sets, daily range): BP systolic 113–159; BP diastolic 65–83
[2017-08-04 05:31] LABS: HEMATOCRIT 36.5 % (36.0-46.0); HEMOGLOBIN 10.4 G/DL (11.9-15.5); MCH 29.7 PG (29.0-34.0); MCHC 28.5 G/DL (30.0-36.0); MCV 104.3 FL (83-99); NRBC (%) 0.4 /100 WBC (0-0); PLATELET COUNT 517 K/uL (156-360); RBC DIS.WIDTH-CV 19.9 % (11.8-14.6); RBC DIS.WIDTH-SD 75.1 % (39-53); WHITE BLOOD COUNT 20.5 K/uL (4.1-10.2)
[2017-08-04 05:58] LABS: ALBUMIN 2.6 G/DL (3.2-4.8); CHLORIDE 111 MEQ/L (99-109); GLUCOSE 77 mg/dL (70-99); SODIUM 137 MEQ/L (136-147)
[2017-08-04 06:10] LABS: CREATININE 3.7 MG/DL (0.6-1.3); GFR ESTIMATE (CALCULATED) 14 mL/min/; PHOSPHORUS 4.1 mg/dL (2.5-4.9); POTASSIUM 5.6 MEQ/L (3.7-5.4); UREA NITROGEN (BUN) 24 mg/dL (9-23)
[2017-08-05 03:06] VITALS: BP 107/65
[2017-08-05 05:50] LABS: HEMOGLOBIN 9.2 G/DL (11.9-15.5); MCH 30.2 PG (29.0-34.0); MCHC 29.7 G/DL (30.0-36.0); MCV 101.6 FL (83-99); NRBC (%) 0.2 /100 WBC (0-0); PLATELET COUNT 450 K/uL (156-360); RBC DIS.WIDTH-CV 19.4 % (11.8-14.6); RBC DIS.WIDTH-SD 71.7 % (39-53); RED BLOOD COUNT 3.05 M/uL (3.80-5.20); WHITE BLOOD COUNT 17.1 K/uL (4.1-10.2)
[2017-08-05 06:26] LABS: ALBUMIN 2.3 G/DL (3.2-4.8); CHLORIDE 109 MEQ/L (99-109); GLUCOSE 65 mg/dL (70-99); PHOSPHORUS 3.6 mg/dL (2.5-4.9); POTASSIUM 4.8 MEQ/L (3.7-5.4); SODIUM 140 MEQ/L (136-147); UREA NITROGEN (BUN) 17 mg/dL (9-23)
[2017-08-05 06:31] LABS: CREATININE 2.8 MG/DL (0.6-1.3); GFR ESTIMATE (CALCULATED) 19 mL/min/
[2017-08-05 07:38] VITALS: BP 131/68
[2017-08-05 11:24] VITALS: BP 104/78
[2017-08-05 15:26] VITALS: BP 108/64
[2017-08-05 19:16] VITALS: BP 126/69
[2017-08-05 23:55] VITALS: BP 113/64
[2017-08-06 04:46] VITALS: BP 119/65
[2017-08-06 05:14] LABS: HEMATOCRIT 34.8 % (36.0-46.0); MCH 29.3 PG (29.0-34.0); MCHC 28.7 G/DL (30.0-36.0); MCV 102.1 FL (83-99); NRBC (%) 0.3 /100 WBC (0-0); PLATELET COUNT 473 K/uL (156-360); RBC DIS.WIDTH-CV 18.9 % (11.8-14.6); RBC DIS.WIDTH-SD 70.3 % (39-53); RED BLOOD COUNT 3.41 M/uL (3.80-5.20); WHITE BLOOD COUNT 19.9 K/uL (4.1-10.2)
[2017-08-06 06:01] LABS: ALBUMIN 2.6 G/DL (3.2-4.8); CHLORIDE 109 MEQ/L (99-109); GFR ESTIMATE (CALCULATED) 13 mL/min/; PHOSPHORUS 4.7 mg/dL (2.5-4.9); POTASSIUM 4.9 MEQ/L (3.7-5.4); SODIUM 139 MEQ/L (136-147)
[2017-08-06 06:03] LABS: CREATININE 3.8 MG/DL (0.6-1.3); GLUCOSE 86 mg/dL (70-99); UREA NITROGEN (BUN) 31 mg/dL (9-23)
[2017-08-06 07:53] VITALS: BP 141/75
[2017-08-06 11:24] VITALS: BP 110/62
[2017-08-06 16:39] VITALS: BP 139/86
[2017-08-06 19:00] VITALS: BP 134/77
[2017-08-06 22:30] VITALS: BP 119/69
[2017-08-07] VITALS (7 sets, daily range): BP systolic 117–143; BP diastolic 60–73
[2017-08-07 06:25] LABS: HEMATOCRIT 29.9 % (36.0-46.0); HEMOGLOBIN 9.2 G/DL (11.9-15.5); MCH 30.8 PG (29.0-34.0); MCHC 30.8 G/DL (30.0-36.0); NRBC (%) 0.3 /100 WBC (0-0); PLATELET COUNT 468 K/uL (156-360); RBC DIS.WIDTH-CV 18.5 % (11.8-14.6); RED BLOOD COUNT 2.99 M/uL (3.80-5.20)
[2017-08-07 08:42] LABS: BASOPHIL (%) 0.3 % (0-1); BASOPHIL COUNT 0.1 K/uL (0-0.1); EOSINOPHIL (%) 2.8 % (0-5); EOSINOPHIL COUNT 0.6 K/uL (0-0.3); HEMATOCRIT 30.7 % (36.0-46.0); HEMOGLOBIN 9.2 G/DL (11.9-15.5); IMMATURE GRANULOCYTE (%) 1.1 % (0.0-0.7); LYMPHOCYTE (%) 7.8 % (15-42); LYMPHOCYTE COUNT 1.6 K/uL (1.0-2.8); MCH 30.3 PG (29.0-34.0); MONOCYTE (%) 9.8 % (3-12); NEUTROPHIL (%) 78.2 % (45-76); NEUTROPHIL COUNT 15.9 K/uL (1.8-6.4); NRBC (%) 0.1 /100 WBC (0-0); PLATELET COUNT 447 K/uL (156-360); RBC DIS.WIDTH-CV 18.7 % (11.8-14.6); RBC DIS.WIDTH-SD 68.9 % (39-53); RED BLOOD COUNT 3.04 M/uL (3.80-5.20); WHITE BLOOD COUNT 20.4 K/uL (4.1-10.2)
[2017-08-07 08:53] LABS: ALBUMIN 2.4 G/DL (3.2-4.8); CHLORIDE 108 MEQ/L (99-109); POTASSIUM 5.4 MEQ/L (3.7-5.4); SODIUM 136 MEQ/L (136-147)
[2017-08-07 09:03] LABS: CREATININE 4.2 MG/DL (0.6-1.3); GFR ESTIMATE (CALCULATED) 12 mL/min/; GLUCOSE 121 mg/dL (70-99); UREA NITROGEN (BUN) 39 mg/dL (9-23)
[2017-08-07 09:32] LABS: PHOSPHORUS 6.5 mg/dL (2.5-4.9)
[2017-08-08 02:36] VITALS: BP 115/65
[2017-08-08 05:42] LABS: HEMATOCRIT 29.3 % (36.0-46.0); MCH 30.3 PG (29.0-34.0); MCHC 30.7 G/DL (30.0-36.0); MCV 98.7 FL (83-99); NRBC (%) 0.1 /100 WBC (0-0); PLATELET COUNT 427 K/uL (156-360); RBC DIS.WIDTH-CV 18.6 % (11.8-14.6); RBC DIS.WIDTH-SD 66.2 % (39-53); RED BLOOD COUNT 2.97 M/uL (3.80-5.20); WHITE BLOOD COUNT 17.3 K/uL (4.1-10.2)
[2017-08-08 07:20] VITALS: BP 113/76
[2017-08-08 11:37] VITALS: BP 116/61
[2017-08-08 15:04] VITALS: BP 132/70
[2017-08-08 19:00] VITALS: BP 117/61
[2017-08-09 00:30] VITALS: BP 108/52
[2017-08-09 04:27] VITALS: BP 144/66
[2017-08-09 05:26] LABS: HEMATOCRIT 33.4 % (36.0-46.0); HEMOGLOBIN 9.9 G/DL (11.9-15.5); MCH 29.6 PG (29.0-34.0); MCHC 29.6 G/DL (30.0-36.0); MCV 99.7 FL (83-99); NRBC (%) 0.2 /100 WBC (0-0); PLATELET COUNT 463 K/uL (156-360); RBC DIS.WIDTH-CV 18.2 % (11.8-14.6); RBC DIS.WIDTH-SD 66.4 % (39-53); RED BLOOD COUNT 3.35 M/uL (3.80-5.20); WHITE BLOOD COUNT 16.2 K/uL (4.1-10.2)
[2017-08-09 07:10] VITALS: BP 128/58
[2017-08-09 08:09] LABS: BASOPHIL (%) 0.3 % (0-1); BASOPHIL COUNT 0.1 K/uL (0-0.1); EOSINOPHIL (%) 3.4 % (0-5); EOSINOPHIL COUNT 0.5 K/uL (0-0.3); HEMATOCRIT 30.8 % (36.0-46.0); HEMOGLOBIN 9.3 G/DL (11.9-15.5); IMMATURE GRANULOCYTE (%) 0.6 % (0.0-0.7); LYMPHOCYTE (%) 9.9 % (15-42); LYMPHOCYTE COUNT 1.5 K/uL (1.0-2.8); MCH 29.9 PG (29.0-34.0); MCHC 30.2 G/DL (30.0-36.0); MONOCYTE (%) 13.1 % (3-12); NEUTROPHIL (%) 72.7 % (45-76); NEUTROPHIL COUNT 10.8 K/uL (1.8-6.4); NRBC (%) 0.1 /100 WBC (0-0); PLATELET COUNT 443 K/uL (156-360); RBC DIS.WIDTH-CV 18.2 % (11.8-14.6); RBC DIS.WIDTH-SD 65.1 % (39-53); RED BLOOD COUNT 3.11 M/uL (3.80-5.20); WHITE BLOOD COUNT 14.9 K/uL (4.1-10.2)
[2017-08-09 08:20] LABS: ALBUMIN 2.5 G/DL (3.2-4.8); CHLORIDE 107 MEQ/L (99-109); POTASSIUM 4.7 MEQ/L (3.7-5.4); SODIUM 137 MEQ/L (136-147)
[2017-08-09 08:28] LABS: CREATININE 3.5 MG/DL (0.6-1.3); GFR ESTIMATE (CALCULATED) 15 mL/min/; PHOSPHORUS 6.2 mg/dL (2.5-4.9); UREA NITROGEN (BUN) 34 mg/dL (9-23)
[2017-08-09 08:29] LABS: GLUCOSE 90 mg/dL (70-99)
[2017-08-09 11:32] VITALS: BP 130/60
[2017-08-09 16:50] VITALS: BP 134/66
[2017-08-09 19:30] VITALS: BP 130/69
[2017-08-10 00:58] VITALS: BP 125/68
[2017-08-10 04:22] VITALS: BP 126/68
[2017-08-10 05:18] LABS: HEMATOCRIT 30.7 % (36.0-46.0); HEMOGLOBIN 9.3 G/DL (11.9-15.5); MCH 29.3 PG (29.0-34.0); MCHC 30.3 G/DL (30.0-36.0); MCV 96.8 FL (83-99); PLATELET COUNT 399 K/uL (156-360); RBC DIS.WIDTH-CV 17.6 % (11.8-14.6); RBC DIS.WIDTH-SD 62.4 % (39-53); RED BLOOD COUNT 3.17 M/uL (3.80-5.20); WHITE BLOOD COUNT 12.5 K/uL (4.1-10.2)
[2017-08-10 07:30] VITALS: BP 139/67
[2017-08-10 12:13] VITALS: BP 139/67
[2017-08-10 19:30] VITALS: BP 158/78
[2017-08-10 23:40] VITALS: BP 138/69
[2017-08-11 03:49] VITALS: BP 146/73
[2017-08-11 05:49] LABS: HEMATOCRIT 31.9 % (36.0-46.0); HEMOGLOBIN 9.8 G/DL (11.9-15.5); MCHC 30.7 G/DL (30.0-36.0); MCV 97.6 FL (83-99); PLATELET COUNT 439 K/uL (156-360); RBC DIS.WIDTH-CV 17.3 % (11.8-14.6); RBC DIS.WIDTH-SD 62.6 % (39-53); RED BLOOD COUNT 3.27 M/uL (3.80-5.20); WHITE BLOOD COUNT 12.8 K/uL (4.1-10.2)
[2017-08-11 07:47] LABS: ALBUMIN 2.8 G/DL (3.2-4.8); CHLORIDE 102 MEQ/L (99-109); POTASSIUM 5.3 MEQ/L (3.7-5.4); SODIUM 135 MEQ/L (136-147)
[2017-08-11 07:53] LABS: GFR ESTIMATE (CALCULATED) 12 mL/min/; GLUCOSE 74 mg/dL (70-99); PHOSPHORUS 7.5 mg/dL (2.5-4.9); UREA NITROGEN (BUN) 37 mg/dL (9-23)
[2017-08-11 07:55] VITALS: BP 142/71
[2017-08-11 12:40] VITALS: BP 153/70
[2017-08-11 17:58] VITALS: BP 149/76
[2017-08-11 19:30] VITALS: BP 123/67
[2017-08-11 23:35] VITALS: BP 135/71
[2017-08-12 03:00] VITALS: BP 115/59
[2017-08-12 05:21] LABS: BASOPHIL (%) 0.6 % (0-1); BASOPHIL COUNT 0.1 K/uL (0-0.1); EOSINOPHIL (%) 4.9 % (0-5); EOSINOPHIL COUNT 0.6 K/uL (0-0.3); HEMATOCRIT 30.4 % (36.0-46.0); HEMOGLOBIN 9.1 G/DL (11.9-15.5); IMMATURE GRANULOCYTE (%) 0.4 % (0.0-0.7); LYMPHOCYTE COUNT 1.6 K/uL (1.0-2.8); MCH 28.9 PG (29.0-34.0); MCHC 29.9 G/DL (30.0-36.0); MCV 96.5 FL (83-99); MONOCYTE (%) 14.2 % (3-12); MONOCYTE COUNT 1.6 K/uL (0-0.8); NEUTROPHIL (%) 65.9 % (45-76); NEUTROPHIL COUNT 7.4 K/uL (1.8-6.4); PLATELET COUNT 402 K/uL (156-360); RBC DIS.WIDTH-CV 17.1 % (11.8-14.6); RBC DIS.WIDTH-SD 59.6 % (39-53); RED BLOOD COUNT 3.15 M/uL (3.80-5.20); WHITE BLOOD COUNT 11.2 K/uL (4.1-10.2)
[2017-08-12 05:52] LABS: CHLORIDE 104 MEQ/L (99-109); GFR ESTIMATE (CALCULATED) 17 mL/min/; GLUCOSE 86 mg/dL (70-99); POTASSIUM 4.8 MEQ/L (3.7-5.4); SODIUM 137 MEQ/L (136-147); UREA NITROGEN (BUN) 27 mg/dL (9-23)
[2017-08-12 05:55] LABS: CREATININE 3.1 MG/DL (0.6-1.3)
[2017-08-12 09:27] VITALS: BP 134/63
[2017-08-12 12:16] VITALS: BP 135/71
[2017-08-12 15:45] VITALS: BP 122/60
[2017-08-12 19:10] VITALS: BP 133/62
[2017-08-12 23:47] VITALS: BP 114/57
[2017-08-13 03:30] VITALS: BP 137/65
[2017-08-13 05:34] LABS: HEMATOCRIT 31.5 % (36.0-46.0); HEMOGLOBIN 9.4 G/DL (11.9-15.5); MCH 29.2 PG (29.0-34.0); MCHC 29.8 G/DL (30.0-36.0); MCV 97.8 FL (83-99); PLATELET COUNT 472 K/uL (156-360); RBC DIS.WIDTH-CV 17.1 % (11.8-14.6); RBC DIS.WIDTH-SD 60.9 % (39-53); RED BLOOD COUNT 3.22 M/uL (3.80-5.20); WHITE BLOOD COUNT 9.7 K/uL (4.1-10.2)
[2017-08-13 08:07] VITALS: BP 137/66
[2017-08-13 11:51] VITALS: BP 117/63
[2017-08-13 17:25] VITALS: BP 149/66
[2017-08-13 19:30] VITALS: BP 147/75
[2017-08-13 23:10] VITALS: BP 128/66
[2017-08-14] VITALS (7 sets, daily range): BP systolic 120–152; BP diastolic 58–77
[2017-08-14 05:23] LABS: HEMATOCRIT 30.7 % (36.0-46.0); HEMOGLOBIN 9.2 G/DL (11.9-15.5); MCH 29.3 PG (29.0-34.0); MCV 97.8 FL (83-99); PLATELET COUNT 516 K/uL (156-360); RBC DIS.WIDTH-SD 59.9 % (39-53); RED BLOOD COUNT 3.14 M/uL (3.80-5.20); WHITE BLOOD COUNT 10.1 K/uL (4.1-10.2)
[2017-08-14 08:31] LABS: ALBUMIN 2.6 G/DL (3.2-4.8); CHLORIDE 104 MEQ/L (99-109); GLUCOSE 124 mg/dL (70-99); PHOSPHORUS 8.5 mg/dL (2.5-4.9); SODIUM 134 MEQ/L (136-147)
[2017-08-14 08:36] LABS: CREATININE 5.1 MG/DL (0.6-1.3); GFR ESTIMATE (CALCULATED) 9 mL/min/; POTASSIUM 5.8 MEQ/L (3.7-5.4); UREA NITROGEN (BUN) 45 mg/dL (9-23)
[2017-08-15 03:50] VITALS: BP 116/55
[2017-08-15 05:43] LABS: HEMATOCRIT 31.1 % (36.0-46.0); HEMOGLOBIN 9.5 G/DL (11.9-15.5); MCH 29.6 PG (29.0-34.0); MCHC 30.5 G/DL (30.0-36.0); MCV 96.9 FL (83-99); NRBC (%) 0.2 /100 WBC (0-0); PLATELET COUNT 521 K/uL (156-360); RBC DIS.WIDTH-CV 16.8 % (11.8-14.6); RBC DIS.WIDTH-SD 58.7 % (39-53); RED BLOOD COUNT 3.21 M/uL (3.80-5.20); WHITE BLOOD COUNT 10.4 K/uL (4.1-10.2)
[2017-08-15 07:18] LABS: ERTH.SED.RATE 126 MM/HR (0-30)
[2017-08-15 09:00] VITALS: BP 110/52
[2017-08-15 16:39] VITALS: BP 142/62
[2017-08-15 19:41] VITALS: BP 132/70
[2017-08-15 23:35] VITALS: BP 129/70
[2017-08-16 04:40] VITALS: BP 123/71
[2017-08-16 06:00] LABS: BASOPHIL (%) 0.7 % (0-1); BASOPHIL COUNT 0.1 K/uL (0-0.1); EOSINOPHIL COUNT 0.5 K/uL (0-0.3); HEMATOCRIT 30.6 % (36.0-46.0); IMMATURE GRANULOCYTE (%) 0.3 % (0.0-0.7); MCH 28.8 PG (29.0-34.0); MCHC 29.4 G/DL (30.0-36.0); MCV 97.8 FL (83-99); MONOCYTE (%) 15.7 % (3-12); MONOCYTE COUNT 1.7 K/uL (0-0.8); NEUTROPHIL (%) 59.3 % (45-76); NEUTROPHIL COUNT 6.3 K/uL (1.8-6.4); PLATELET COUNT 606 K/uL (156-360); RBC DIS.WIDTH-CV 16.6 % (11.8-14.6); RBC DIS.WIDTH-SD 59.4 % (39-53); RED BLOOD COUNT 3.13 M/uL (3.80-5.20); WHITE BLOOD COUNT 10.6 K/uL (4.1-10.2)
[2017-08-16 06:25] LABS: CHLORIDE 106 MEQ/L (99-109); CREATININE 4.3 MG/DL (0.6-1.3); GFR ESTIMATE (CALCULATED) 11 mL/min/; POTASSIUM 5.5 MEQ/L (3.7-5.4); SODIUM 136 MEQ/L (136-147); UREA NITROGEN (BUN) 36 mg/dL (9-23)
[2017-08-16 06:26] LABS: GLUCOSE 79 mg/dL (70-99)
[2017-08-16 07:42] VITALS: BP 135/70
[2017-08-16 12:00] VITALS: BP 141/77
[2017-08-16 15:25] VITALS: BP 139/66
[2017-08-16 21:06] VITALS: BP 150/72
[2017-08-17 01:06] VITALS: BP 119/56
[2017-08-17 05:00] VITALS: BP 119/58
[2017-08-17 05:10] LABS: HEMATOCRIT 29.4 % (36.0-46.0); HEMOGLOBIN 8.8 G/DL (11.9-15.5); MCH 28.8 PG (29.0-34.0); MCHC 29.9 G/DL (30.0-36.0); MCV 96.1 FL (83-99); PLATELET COUNT 547 K/uL (156-360); RBC DIS.WIDTH-CV 16.3 % (11.8-14.6); RBC DIS.WIDTH-SD 57.4 % (39-53); RED BLOOD COUNT 3.06 M/uL (3.80-5.20); WHITE BLOOD COUNT 10.3 K/uL (4.1-10.2)
[2017-08-17 09:05] VITALS: BP 147/76
[2017-08-17 12:19] VITALS: BP 124/60
[2017-08-17 15:49] VITALS: BP 145/74
[2017-08-17 20:00] VITALS: BP 133/68
[2017-08-18 00:47] VITALS: BP 117/58
[2017-08-18 05:14] VITALS: BP 139/68
[2017-08-18 08:07] LABS: BASOPHIL (%) 0.4 % (0-1); BASOPHIL COUNT 0.1 K/uL (0-0.1); EOSINOPHIL (%) 4.6 % (0-5); EOSINOPHIL COUNT 0.6 K/uL (0-0.3); HEMATOCRIT 29.9 % (36.0-46.0); IMMATURE GRANULOCYTE (%) 0.4 % (0.0-0.7); LYMPHOCYTE (%) 14.5 % (15-42); LYMPHOCYTE COUNT 1.8 K/uL (1.0-2.8); MCH 29.1 PG (29.0-34.0); MCHC 30.1 G/DL (30.0-36.0); MCV 96.8 FL (83-99); MONOCYTE (%) 14.3 % (3-12); MONOCYTE COUNT 1.8 K/uL (0-0.8); NEUTROPHIL (%) 65.8 % (45-76); NEUTROPHIL COUNT 8.1 K/uL (1.8-6.4); PLATELET COUNT 606 K/uL (156-360); RBC DIS.WIDTH-CV 16.4 % (11.8-14.6); RBC DIS.WIDTH-SD 58.1 % (39-53); RED BLOOD COUNT 3.09 M/uL (3.80-5.20); WHITE BLOOD COUNT 12.3 K/uL (4.1-10.2)
[2017-08-18 08:22] LABS: ALBUMIN 2.6 G/DL (3.2-4.8); CHLORIDE 103 MEQ/L (99-109); GFR ESTIMATE (CALCULATED) 12 mL/min/; PHOSPHORUS 8.4 mg/dL (2.5-4.9); POTASSIUM 5.3 MEQ/L (3.7-5.4); SODIUM 135 MEQ/L (136-147); UREA NITROGEN (BUN) 45 mg/dL (9-23)
[2017-08-18 08:23] LABS: GLUCOSE 128 mg/dL (70-99)
[2017-08-18 11:44] VITALS: BP 142/72
[2017-08-18 16:00] VITALS: BP 138/72
[2017-08-18 21:57] VITALS: BP 144/72
[2017-08-18 23:52] VITALS: BP 132/70
[2017-08-19 05:25] VITALS: BP 134/70
[2017-08-19 08:19] VITALS: BP 179/79
[2017-08-19 12:45] VITALS: BP 119/78
[2017-08-19 16:01] VITALS: BP 170/79
[2017-08-19 21:17] VITALS: BP 138/70
[2017-08-19 23:24] VITALS: BP 140/68
[2017-08-20 04:49] VITALS: BP 130/72
[2017-08-20 08:06] VITALS: BP 134/67
[2017-08-20 12:21] VITALS: BP 126/67
[2017-08-20 16:30] VITALS: BP 142/75
[2017-08-20 20:07] VITALS: BP 155/74
[2017-08-20 23:34] VITALS: BP 152/70
[2017-08-21 03:45] VITALS: BP 114/59
[2017-08-21 07:48] VITALS: BP 139/65
[2017-08-21 08:15] LABS: BASOPHIL (%) 0.6 % (0-1); BASOPHIL COUNT 0.1 K/uL (0-0.1); EOSINOPHIL COUNT 0.7 K/uL (0-0.3); HEMATOCRIT 29.9 % (36.0-46.0); HEMOGLOBIN 8.9 G/DL (11.9-15.5); IMMATURE GRANULOCYTE (%) 0.5 % (0.0-0.7); LYMPHOCYTE (%) 17.2 % (15-42); LYMPHOCYTE COUNT 1.9 K/uL (1.0-2.8); MCH 28.2 PG (29.0-34.0); MCHC 29.8 G/DL (30.0-36.0); MCV 94.6 FL (83-99); MONOCYTE (%) 14.4 % (3-12); MONOCYTE COUNT 1.6 K/uL (0-0.8); NEUTROPHIL (%) 61.3 % (45-76); NEUTROPHIL COUNT 6.9 K/uL (1.8-6.4); NRBC (%) 0.3 /100 WBC (0-0); PLATELET COUNT 681 K/uL (156-360); RBC DIS.WIDTH-CV 16.6 % (11.8-14.6); RBC DIS.WIDTH-SD 58.2 % (39-53); RED BLOOD COUNT 3.16 M/uL (3.80-5.20); WHITE BLOOD COUNT 11.3 K/uL (4.1-10.2)
[2017-08-21 08:26] LABS: ALBUMIN 2.6 G/DL (3.2-4.8); CHLORIDE 102 MEQ/L (99-109); SODIUM 133 MEQ/L (136-147)
[2017-08-21 08:35] LABS: GFR ESTIMATE (CALCULATED) 10 mL/min/; GLUCOSE 90 mg/dL (70-99); PHOSPHORUS 9.9 mg/dL (2.5-4.9); UREA NITROGEN (BUN) 56 mg/dL (9-23)
[2017-08-21 08:37] LABS: CREATININE 4.7 MG/DL (0.6-1.3)
[2017-08-21 12:32] VITALS: BP 153/69
[2017-08-21 16:00] VITALS: BP 140/75
[2017-08-21 20:23] VITALS: BP 147/68
[2017-08-21 22:54] VITALS: BP 120/59
[2017-08-22 03:55] VITALS: BP 119/59
[2017-08-22 08:57] VITALS: BP 127/66
[2017-08-22 12:10] VITALS: BP 135/76
[2017-08-22 16:12] VITALS: BP 138/71
[2017-08-22 19:50] VITALS: BP 147/72
[2017-08-22 22:54] VITALS: BP 137/89
[2017-08-23 03:00] VITALS: BP 152/72
[2017-08-23 05:14] LABS: HEMATOCRIT 27.6 % (36.0-46.0); HEMOGLOBIN 8.3 G/DL (11.9-15.5); MCH 27.9 PG (29.0-34.0); MCHC 30.1 G/DL (30.0-36.0); MCV 92.9 FL (83-99); NRBC (%) 0.3 /100 WBC (0-0); PLATELET COUNT 593 K/uL (156-360); RBC DIS.WIDTH-CV 17.2 % (11.8-14.6); RBC DIS.WIDTH-SD 58.4 % (39-53); RED BLOOD COUNT 2.97 M/uL (3.80-5.20); WHITE BLOOD COUNT 11.1 K/uL (4.1-10.2)
[2017-08-23 08:47] LABS: BASOPHIL (%) 0.9 % (0-1); BASOPHIL COUNT 0.1 K/uL (0-0.1); EOSINOPHIL (%) 6.4 % (0-5); EOSINOPHIL COUNT 0.7 K/uL (0-0.3); HEMATOCRIT 29.9 % (36.0-46.0); HEMOGLOBIN 8.8 G/DL (11.9-15.5); IMMATURE GRANULOCYTE (%) 0.4 % (0.0-0.7); LYMPHOCYTE (%) 16.8 % (15-42); LYMPHOCYTE COUNT 1.9 K/uL (1.0-2.8); MCH 27.8 PG (29.0-34.0); MCHC 29.4 G/DL (30.0-36.0); MCV 94.6 FL (83-99); MONOCYTE (%) 16.8 % (3-12); MONOCYTE COUNT 1.9 K/uL (0-0.8); NEUTROPHIL (%) 58.7 % (45-76); NEUTROPHIL COUNT 6.6 K/uL (1.8-6.4); NRBC (%) 0.2 /100 WBC (0-0); PLATELET COUNT 619 K/uL (156-360); RBC DIS.WIDTH-CV 16.9 % (11.8-14.6); RBC DIS.WIDTH-SD 58.3 % (39-53); RED BLOOD COUNT 3.16 M/uL (3.80-5.20); WHITE BLOOD COUNT 11.3 K/uL (4.1-10.2)
[2017-08-23 08:56] LABS: ALBUMIN 2.7 G/DL (3.2-4.8); CHLORIDE 102 MEQ/L (99-109); POTASSIUM 5.5 MEQ/L (3.7-5.4); SODIUM 134 MEQ/L (136-147)
[2017-08-23 09:01] LABS: CREATININE 4.3 MG/DL (0.6-1.3); GFR ESTIMATE (CALCULATED) 11 mL/min/; GLUCOSE 94 mg/dL (70-99); PHOSPHORUS 9.4 mg/dL (2.5-4.9); UREA NITROGEN (BUN) 46 mg/dL (9-23)
[2017-08-23 12:27] VITALS: BP 154/77
[2017-08-23 17:14] VITALS: BP 181/89
[2017-08-23 18:20] VITALS: BP 159/77
[2017-08-23 19:10] VITALS: BP 158/74
[2017-08-23 23:52] VITALS: BP 108/55
[2017-08-24 04:15] VITALS: BP 115/60
[2017-08-24 05:34] LABS: HEMATOCRIT 27.7 % (36.0-46.0); HEMOGLOBIN 8.4 G/DL (11.9-15.5); MCHC 30.3 G/DL (30.0-36.0); MCV 92.3 FL (83-99); NRBC (%) 0.4 /100 WBC (0-0); PLATELET COUNT 518 K/uL (156-360); RBC DIS.WIDTH-CV 17.2 % (11.8-14.6); RBC DIS.WIDTH-SD 58.4 % (39-53); WHITE BLOOD COUNT 10.3 K/uL (4.1-10.2)
[2017-08-24 09:11] VITALS: BP 110/54
[2017-08-24 11:45] VITALS: BP 126/72
[2017-08-24 16:30] VITALS: BP 116/70
[2017-08-24 20:00] VITALS: BP 168/76
[2017-08-24 23:55] VITALS: BP 105/61
[2017-08-25 04:00] VITALS: BP 121/61
[2017-08-25 05:13] LABS: HEMATOCRIT 27.8 % (36.0-46.0); HEMOGLOBIN 8.4 G/DL (11.9-15.5); MCH 28.1 PG (29.0-34.0); MCHC 30.2 G/DL (30.0-36.0); NRBC (%) 0.5 /100 WBC (0-0); PLATELET COUNT 528 K/uL (156-360); RBC DIS.WIDTH-CV 17.4 % (11.8-14.6); RBC DIS.WIDTH-SD 59.1 % (39-53); RED BLOOD COUNT 2.99 M/uL (3.80-5.20); WHITE BLOOD COUNT 13.2 K/uL (4.1-10.2)
[2017-08-25 07:24] VITALS: BP 143/74
[2017-08-25 08:41] LABS: BASOPHIL (%) 0.6 % (0-1); BASOPHIL COUNT 0.1 K/uL (0-0.1); EOSINOPHIL (%) 4.2 % (0-5); EOSINOPHIL COUNT 0.5 K/uL (0-0.3); HEMATOCRIT 28.3 % (36.0-46.0); HEMOGLOBIN 8.5 G/DL (11.9-15.5); IMMATURE GRANULOCYTE (%) 0.3 % (0.0-0.7); LYMPHOCYTE COUNT 1.9 K/uL (1.0-2.8); MCH 28.1 PG (29.0-34.0); MCV 93.4 FL (83-99); MONOCYTE (%) 14.9 % (3-12); MONOCYTE COUNT 1.8 K/uL (0-0.8); NEUTROPHIL COUNT 7.6 K/uL (1.8-6.4); NRBC (%) 0.6 /100 WBC (0-0); PLATELET COUNT 559 K/uL (156-360); RBC DIS.WIDTH-CV 17.6 % (11.8-14.6); RBC DIS.WIDTH-SD 60.2 % (39-53); RED BLOOD COUNT 3.03 M/uL (3.80-5.20); WHITE BLOOD COUNT 11.9 K/uL (4.1-10.2)
[2017-08-25 09:00] LABS: ALBUMIN 2.5 G/DL (3.2-4.8); CHLORIDE 102 MEQ/L (99-109); CREATININE 4.1 MG/DL (0.6-1.3); GFR ESTIMATE (CALCULATED) 12 mL/min/; GLUCOSE 83 mg/dL (70-99); PHOSPHORUS 8.3 mg/dL (2.5-4.9); POTASSIUM 5.5 MEQ/L (3.7-5.4); SODIUM 136 MEQ/L (136-147); UREA NITROGEN (BUN) 33 mg/dL (9-23)
[2017-08-25 12:00] VITALS: BP 139/66
[2017-08-25 17:00] VITALS: BP 142/70
[2017-08-25 21:40] VITALS: BP 156/74
[2017-08-25 23:55] VITALS: BP 119/58
[2017-08-26 04:00] VITALS: BP 100/55
[2017-08-26 06:07] LABS: HEMATOCRIT 28.9 % (36.0-46.0); HEMOGLOBIN 8.6 G/DL (11.9-15.5); MCH 27.7 PG (29.0-34.0); MCHC 29.8 G/DL (30.0-36.0); MCV 93.2 FL (83-99); NRBC (%) 0.7 /100 WBC (0-0); PLATELET COUNT 510 K/uL (156-360); RBC DIS.WIDTH-CV 17.6 % (11.8-14.6); RBC DIS.WIDTH-SD 60.1 % (39-53); WHITE BLOOD COUNT 10.3 K/uL (4.1-10.2)
[2017-08-26 08:50] VITALS: BP 101/55
[2017-08-26 12:02] VITALS: BP 123/61
[2017-08-26 17:00] VITALS: BP 146/83
[2017-08-26 19:00] VITALS: BP 149/70
[2017-08-26 23:00] VITALS: BP 132/72
[2017-08-27 04:15] VITALS: BP 118/68
[2017-08-27 05:24] LABS: HEMATOCRIT 28.8 % (36.0-46.0); HEMOGLOBIN 8.2 G/DL (11.9-15.5); MCH 26.9 PG (29.0-34.0); MCHC 28.5 G/DL (30.0-36.0); MCV 94.4 FL (83-99); NRBC (%) 0.5 /100 WBC (0-0); PLATELET COUNT 540 K/uL (156-360); RBC DIS.WIDTH-CV 17.9 % (11.8-14.6); RBC DIS.WIDTH-SD 61.8 % (39-53); RED BLOOD COUNT 3.05 M/uL (3.80-5.20); WHITE BLOOD COUNT 11.3 K/uL (4.1-10.2)
[2017-08-27 08:28] VITALS: BP 138/78
[2017-08-27 11:29] VITALS: BP 134/70
[2017-08-27 17:13] VITALS: BP 165/83
[2017-08-27 20:02] VITALS: BP 155/72
[2017-08-28 00:15] VITALS: BP 128/69
[2017-08-28 05:00] VITALS: BP 157/83
[2017-08-28 05:16] LABS: HEMATOCRIT 28.5 % (36.0-46.0); HEMOGLOBIN 8.4 G/DL (11.9-15.5); MCH 27.2 PG (29.0-34.0); MCHC 29.5 G/DL (30.0-36.0); MCV 92.2 FL (83-99); NRBC (%) 0.4 /100 WBC (0-0); PLATELET COUNT 541 K/uL (156-360); RBC DIS.WIDTH-CV 18.6 % (11.8-14.6); RBC DIS.WIDTH-SD 62.8 % (39-53); RED BLOOD COUNT 3.09 M/uL (3.80-5.20); WHITE BLOOD COUNT 13.1 K/uL (4.1-10.2)
[2017-08-28 07:24] VITALS: BP 136/70
[2017-08-28 07:47] LABS: ALBUMIN 2.4 G/DL (3.2-4.8); CHLORIDE 103 MEQ/L (99-109); GLUCOSE 78 mg/dL (70-99); PHOSPHORUS 7.1 mg/dL (2.5-4.9); SODIUM 136 MEQ/L (136-147); UREA NITROGEN (BUN) 33 mg/dL (9-23)
[2017-08-28 08:00] LABS: CREATININE 4.8 MG/DL (0.6-1.3); GFR ESTIMATE (CALCULATED) 10 mL/min/; POTASSIUM 6.1 MEQ/L (3.7-5.4)
[2017-08-28 09:24] LABS: ALBUMIN 2.5 G/DL (3.2-4.8); CHLORIDE 102 MEQ/L (99-109); CREATININE 4.9 MG/DL (0.6-1.3); GFR ESTIMATE (CALCULATED) 10 mL/min/; GLUCOSE 93 mg/dL (70-99); PHOSPHORUS 6.7 mg/dL (2.5-4.9); POTASSIUM 5.4 MEQ/L (3.7-5.4); SODIUM 134 MEQ/L (136-147); UREA NITROGEN (BUN) 33 mg/dL (9-23)
[2017-08-28 14:47] VITALS: BP 146/76
[2017-08-28 19:00] VITALS: BP 166/77
[2017-08-28 22:30] VITALS: BP 132/72
[2017-08-29 04:00] VITALS: BP 132/73
[2017-08-29 06:05] LABS: HEMATOCRIT 29.4 % (36.0-46.0); HEMOGLOBIN 8.8 G/DL (11.9-15.5); MCH 27.4 PG (29.0-34.0); MCHC 29.9 G/DL (30.0-36.0); MCV 91.6 FL (83-99); NRBC (%) 0.2 /100 WBC (0-0); PLATELET COUNT 542 K/uL (156-360); RBC DIS.WIDTH-SD 60.2 % (39-53); RED BLOOD COUNT 3.21 M/uL (3.80-5.20); WHITE BLOOD COUNT 11.7 K/uL (4.1-10.2)
[2017-08-29 07:25] VITALS: BP 170/92
[2017-08-29 12:16] VITALS: BP 132/78
[2017-08-29 15:47] VITALS: BP 159/81
[2017-08-29 19:29] VITALS: BP 163/88
[2017-08-29 23:19] VITALS: BP 145/82
[2017-08-30 03:37] VITALS: BP 133/74
[2017-08-30 05:16] VITALS: BP 130/70
[2017-08-30 05:20] LABS: HEMATOCRIT 27.4 % (36.0-46.0); HEMOGLOBIN 8.2 G/DL (11.9-15.5); MCH 27.2 PG (29.0-34.0); MCHC 29.9 G/DL (30.0-36.0); MCV 90.7 FL (83-99); NRBC (%) 0.1 /100 WBC (0-0); PLATELET COUNT 559 K/uL (156-360); RBC DIS.WIDTH-CV 18.3 % (11.8-14.6); RBC DIS.WIDTH-SD 60.8 % (39-53); RED BLOOD COUNT 3.02 M/uL (3.80-5.20); WHITE BLOOD COUNT 13.5 K/uL (4.1-10.2)
[2017-08-30 08:30] LABS: ALBUMIN 2.4 G/DL (3.2-4.8); CHLORIDE 102 MEQ/L (99-109); CREATININE 4.4 MG/DL (0.6-1.3); GFR ESTIMATE (CALCULATED) 11 mL/min/; GLUCOSE 79 mg/dL (70-99); PHOSPHORUS 7.2 mg/dL (2.5-4.9); POTASSIUM 5.1 MEQ/L (3.7-5.4); SODIUM 135 MEQ/L (136-147); UREA NITROGEN (BUN) 29 mg/dL (9-23)
[2017-08-30 08:31] LABS: BASOPHIL (%) 0.7 % (0-1); BASOPHIL COUNT 0.1 K/uL (0-0.1); EOSINOPHIL COUNT 0.4 K/uL (0-0.3); IMMATURE GRANULOCYTE (%) 0.4 % (0.0-0.7); LYMPHOCYTE (%) 16.4 % (15-42); LYMPHOCYTE COUNT 2.2 K/uL (1.0-2.8); MONOCYTE (%) 15.1 % (3-12); NEUTROPHIL (%) 64.4 % (45-76); NEUTROPHIL COUNT 8.7 K/uL (1.8-6.4)
[2017-08-30 11:42] VITALS: BP 133/66
[2017-08-30 15:39] VITALS: BP 120/60
[2017-08-30 19:09] VITALS: BP 136/77
[2017-08-30 22:59] VITALS: BP 117/61
[2017-08-31 03:23] VITALS: BP 123/68
[2017-08-31 05:15] LABS: HEMATOCRIT 28.3 % (36.0-46.0); HEMOGLOBIN 8.5 G/DL (11.9-15.5); MCH 27.1 PG (29.0-34.0); MCV 90.1 FL (83-99); NRBC (%) 0.2 /100 WBC (0-0); PLATELET COUNT 535 K/uL (156-360); RBC DIS.WIDTH-CV 18.5 % (11.8-14.6); RBC DIS.WIDTH-SD 60.7 % (39-53); RED BLOOD COUNT 3.14 M/uL (3.80-5.20); WHITE BLOOD COUNT 11.1 K/uL (4.1-10.2)
[2017-08-31 07:25] VITALS: BP 157/89
[2017-08-31 11:10] VITALS: BP 144/93
[2017-08-31 16:30] VITALS: BP 132/76
[2017-08-31 20:36] VITALS: BP 169/85
[2017-09-01 00:07] VITALS: BP 132/68
[2017-09-01 04:10] VITALS: BP 125/72
[2017-09-01 06:10] LABS: HEMATOCRIT 28.6 % (36.0-46.0); HEMOGLOBIN 8.6 G/DL (11.9-15.5); MCH 27.2 PG (29.0-34.0); MCHC 30.1 G/DL (30.0-36.0); MCV 90.5 FL (83-99); NRBC (%) 0.3 /100 WBC (0-0); PLATELET COUNT 542 K/uL (156-360); RBC DIS.WIDTH-CV 18.6 % (11.8-14.6); RBC DIS.WIDTH-SD 61.5 % (39-53); RED BLOOD COUNT 3.16 M/uL (3.80-5.20); WHITE BLOOD COUNT 12.4 K/uL (4.1-10.2)
[2017-09-01 07:16] VITALS: BP 155/74
[2017-09-01 10:21] LABS: ALBUMIN 2.5 G/DL (3.2-4.8); CHLORIDE 102 MEQ/L (99-109); POTASSIUM 4.6 MEQ/L (3.7-5.4); SODIUM 138 MEQ/L (136-147)
[2017-09-01 10:26] LABS: GFR ESTIMATE (CALCULATED) 12 mL/min/; GLUCOSE 82 mg/dL (70-99); PHOSPHORUS 6.4 mg/dL (2.5-4.9); UREA NITROGEN (BUN) 29 mg/dL (9-23)
[2017-09-01 12:18] LABS: HEPATITIS B SURFACE ANTIGEN Nonreactive
[2017-09-01 12:42] VITALS: BP 147/70
[2017-09-01 16:45] VITALS: BP 147/78
[2017-09-01 19:18] VITALS: BP 138/76
[2017-09-02] VITALS (7 sets, daily range): BP systolic 116–151; BP diastolic 67–89
[2017-09-03 04:10] VITALS: BP 130/81
[2017-09-03 07:11] VITALS: BP 142/89
[2017-09-03 11:17] VITALS: BP 157/83
[2017-09-03 15:40] VITALS: BP 143/86
[2017-09-03 20:51] VITALS: BP 155/85
[2017-09-03 23:16] VITALS: BP 156/72
[2017-09-04 05:35] VITALS: BP 151/84
[2017-09-04 07:50] LABS: BASOPHIL (%) 0.7 % (0-1); BASOPHIL COUNT 0.1 K/uL (0-0.1); EOSINOPHIL (%) 3.5 % (0-5); EOSINOPHIL COUNT 0.4 K/uL (0-0.3); HEMATOCRIT 27.3 % (36.0-46.0); HEMOGLOBIN 8.1 G/DL (11.9-15.5); IMMATURE GRANULOCYTE (%) 0.4 % (0.0-0.7); LYMPHOCYTE (%) 17.7 % (15-42); MCH 26.9 PG (29.0-34.0); MCHC 29.7 G/DL (30.0-36.0); MCV 90.7 FL (83-99); MONOCYTE (%) 12.9 % (3-12); MONOCYTE COUNT 1.5 K/uL (0-0.8); NEUTROPHIL (%) 64.8 % (45-76); NEUTROPHIL COUNT 7.3 K/uL (1.8-6.4); NRBC (%) 0.3 /100 WBC (0-0); PLATELET COUNT 592 K/uL (156-360); RBC DIS.WIDTH-CV 19.3 % (11.8-14.6); RBC DIS.WIDTH-SD 64.4 % (39-53); RED BLOOD COUNT 3.01 M/uL (3.80-5.20); WHITE BLOOD COUNT 11.3 K/uL (4.1-10.2)
[2017-09-04 08:00] LABS: ALBUMIN 2.4 G/DL (3.2-4.8); CHLORIDE 104 MEQ/L (99-109); POTASSIUM 4.9 MEQ/L (3.7-5.4); SODIUM 136 MEQ/L (136-147)
[2017-09-04 08:07] LABS: CREATININE 4.6 MG/DL (0.6-1.3); GFR ESTIMATE (CALCULATED) 11 mL/min/; GLUCOSE 130 mg/dL (70-99); PHOSPHORUS 7.1 mg/dL (2.5-4.9); UREA NITROGEN (BUN) 35 mg/dL (9-23)
[2017-09-04 11:39] VITALS: BP 155/81
[2017-09-04] MEDS ORDERED: LOPERAMIDE2 MG PO (14:02)
[2017-09-04] MEDS ORDERED: HYDROCODON-ACE1 EAC7 PO (14:02)
[2017-09-04] MEDS ORDERED: MIDODRINE HCL5 MG PO (14:02)
[2017-09-04] MEDS ORDERED: CALCIUM ACETAT667 MG PO (17:03)
[2017-09-04 17:14] VITALS: BP 150/90
== END 2017-09-04 18:06 | disposition home health service (06) | DRG 853 ==
LOC: 4WEST 16:44 → CANRESERV 16:45 → ENRESERV 16:45 → 4EAST 07-08 13:33 → ENRESERV 07-21 15:09 → 4EAST 07-21 15:16 → CANRESERV 07-21 16:37 → ENRESERV 07-21 16:37 → 4EAST 07-21 19:21 → ENRESERV 07-21 19:56 → 4EAST 07-21 23:14 → ENRESERV 07-25 17:33 → 4WEST 07-25 17:43 → ENRESERV 07-27 17:48 → 4EAST 07-27 19:34 → ENPENDDIS 09-04 → 4EAST 09-04 18:06
PROVIDERS: Hospitalist; Internal Medicine Critical Care Medicine; Internal Medicine Nephrology; Internal Medicine Pulmonary Disease; Nurse Practitioner; Physician Assistant; Surgery
DX: A41.02 Sepsis due to Methicillin resistant Staphylococcus aureus (principal); K80.12 Calculus of gallbladder with acute and chronic cholecystitis without obstruction; R65.20 Severe sepsis without septic shock; J15.212 Pneumonia due to Methicillin resistant Staphylococcus aureus; J44.0 Chronic obstructive pulmonary disease with (acute) lower respiratory infection; J96.21 Acute and chronic respiratory failure with hypoxia; T81.4XXA Infection following a procedure, initial encounter; T81.31XA Disruption of external operation (surgical) wound, not elsewhere classified, initial encounter; L76.32 Postprocedural hematoma of skin and subcutaneous tissue following other procedure; Y83.8 Other surgical procedures as the cause of abnormal reaction of the patient, or of later complication, without mention of misadventure at the time of the procedure; T17.590A Other foreign object in bronchus causing asphyxiation, initial encounter; N17.9 Acute kidney failure, unspecified; B96.5 Pseudomonas (aeruginosa) (mallei) (pseudomallei) as the cause of diseases classified elsewhere; J95.89 Other postprocedural complications and disorders of respiratory system, not elsewhere classified; J98.01 Acute bronchospasm; I12.0 Hypertensive chronic kidney disease with stage 5 chronic kidney disease or end stage renal disease; E11.22 Type 2 diabetes mellitus with diabetic chronic kidney disease; N18.6 End stage renal disease; D63.1 Anemia in chronic kidney disease; L89.153 Pressure ulcer of sacral region, stage 3; L89.154 Pressure ulcer of sacral region, stage 4; L89.612 Pressure ulcer of right heel, stage 2; L89.329 Pressure ulcer of left buttock, unspecified stage; L89.899 Pressure ulcer of other site, unspecified stage; E43 Unspecified severe protein-calorie malnutrition; R64 Cachexia; Z68.1 Body mass index [BMI] 19.9 or less, adult; E87.5 Hyperkalemia; J90 Pleural effusion, not elsewhere classified; N25.89 Other disorders resulting from impaired renal tubular function; E87.2 Acidosis; N39.0 Urinary tract infection, site not specified; D72.829 Elevated white blood cell count, unspecified; T38.0X5A Adverse effect of glucocorticoids and synthetic analogues, initial encounter; K94.03 Colostomy malfunction; Y83.3 Surgical operation with formation of external stoma as the cause of abnormal reaction of the patient, or of later complication, without mention of misadventure at the time of the procedure; Z43.0 Encounter for attention to tracheostomy; D50.9 Iron deficiency anemia, unspecified; R00.0 Tachycardia, unspecified; T48.6X5A Adverse effect of antiasthmatics, initial encounter; K21.9 Gastro-esophageal reflux disease without esophagitis; F32.9 Major depressive disorder, single episode, unspecified; F41.9 Anxiety disorder, unspecified; Z99.2 Dependence on renal dialysis; Z87.891 Personal history of nicotine dependence; Z96.89 Presence of other specified functional implants
CPT/HCPCS: 36600; 71045; 72220; 74176; 74300; 76604; 78580; 80048; 80048 91; 80053; 80069; 80076; 80202; 81003; 82728; 82803; 82948; 83036; 83540; 83605; 83735; 84100; 84134; 84466; 85025; 85025 91; 85027; 85610; 85651; 85730; 86140; 86706; 86850; 86900; 86901; 86920; 87040; 87070; 87075; 87077; 87086; 87106; 87147; 87186; 87205; 87340; 87493; 87641; 88304; 92610 GN; 93005; 94002; 94003; 94010; 94640; 94640 76; 94760; 94799; 97530 GO; 97530 GP; 99202; A6214; A9540; C1788; J0131; J0171; J0690; J0881; J1170; J1450; J1644; J1815; J1885; J2250; J2405; J2543; J2920; J2997; J3010; J3370; J7040; J7050; J7512; P9016; P9045; P9047; S0020; S0074

== ENCOUNTER → 2017-10-27 | Outpatient (CLI) | payer OTHER ==
[~2017-10-27] MED LIST changes: +CALCIUM ACETAT667 MG PO; +FAMOTIDINE IV; +HYDROCODON-ACE1 EAC7 PO; +LOPERAMIDE2 MG PO; +MIDODRINE HCL5 MG PO; +MORPHINE SUL IM; +MUCINEX600 MG PO; +NITROSTAT0.4 MG SL; +PERFOROMIS20 MCG/2 M IH; +PROVENTIL,2.5 MG/0.5 IH; +PULMICORT0.5 MG/21 IH; +TRAZODONE HCL50 MG PO; +TYLENOL REGULA325 MG PO; +ULTRAM50 MG PO; +VANCOMYCIN125 MG/2.5 PO; +VANCOMYCIN750 MG/151 IV
== END | disposition home or self-care (01) ==
LOC: AMB 12:00
DX: T82.898A Other specified complication of vascular prosthetic devices, implants and grafts, initial encounter (principal); N18.6 End stage renal disease; Z99.2 Dependence on renal dialysis; Z88.5 Allergy status to narcotic agent
CPT/HCPCS: 99211

== ENCOUNTER 2017-10-28 10:56 | Day surgery (SDC) | payer OTHER ==
[~2017-10-28] VITALS: Ht 160 cm; Wt 5.0 kg
[2017-10-28 11:34] VITALS: BP 114/65
[2017-10-28 11:39] LABS: BASOPHIL (%) 0.8 % (0-1); BASOPHIL COUNT 0.1 K/uL (0-0.1); EOSINOPHIL (%) 2.5 % (0-5); EOSINOPHIL COUNT 0.2 K/uL (0-0.3); HEMATOCRIT 33.7 % (36.0-46.0); HEMOGLOBIN 10.4 G/DL (11.9-15.5); IMMATURE GRANULOCYTE (%) 0.1 % (0.0-0.7); LYMPHOCYTE (%) 23.6 % (15-42); LYMPHOCYTE COUNT 1.7 K/uL (1.0-2.8); MCH 25.6 PG (29.0-34.0); MCHC 30.9 G/DL (30.0-36.0); MONOCYTE (%) 14.7 % (3-12); MONOCYTE COUNT 1.1 K/uL (0-0.8); NEUTROPHIL (%) 58.3 % (45-76); NEUTROPHIL COUNT 4.3 K/uL (1.8-6.4); PLATELET COUNT 292 K/uL (156-360); RBC DIS.WIDTH-CV 19.9 % (11.8-14.6); RBC DIS.WIDTH-SD 60.3 % (39-53); RED BLOOD COUNT 4.06 M/uL (3.80-5.20); WHITE BLOOD COUNT 7.3 K/uL (4.1-10.2)
[2017-10-28 11:50] LABS: CHLORIDE 99 mEq/L (99-109); POTASSIUM 3.8 mEq/L (3.7-5.4); SODIUM 141 mEq/L (136-147)
[2017-10-28 11:52] LABS: GLUCOSE 84 mg/dL (70-99)
[2017-10-28 11:56] LABS: CREATININE 2.5 mg/dL (0.6-1.3); GFR ESTIMATE (CALCULATED) 21 mL/min/
[2017-10-28 11:57] LABS: UREA NITROGEN (BUN) 13 mg/dL (9-23)
[2017-10-28 12:04] LABS: QUANTITATIVE HCG 5.5 MIU/ML
[2017-10-28 15:32] VITALS: BP 131/63
== END 2017-10-28 15:41 | disposition home or self-care (01) ==
LOC: SDC 10:56 → 2EAST 10:57 → SDC 13:27 → 2EAST 15:41
PROVIDERS: Physician Assistant
PROC: 0J2TXYZ Change Other Device in Trunk Subcutaneous Tissue and Fascia, External Approach (ICD-10-PCS; principal; 2017-10-28)
DX: T82.42XA Displacement of vascular dialysis catheter, initial encounter (principal); N18.6 End stage renal disease; Z99.2 Dependence on renal dialysis; Z87.19 Personal history of other diseases of the digestive system; Y83.1 Surgical operation with implant of artificial internal device as the cause of abnormal reaction of the patient, or of later complication, without mention of misadventure at the time of the procedure
CPT/HCPCS: 80048; 84702; 85025; 87641; C1788; G0378; J0690; J1644; J7040